=== PATIENT | male | born 1945 | race Caucasian/White ===

== ENCOUNTER 2018-09-29 12:30 | Inpatient (IN) ==
--- NOTE | 2018-09-18 13:13 | PAT Medication Instructions ---
Medication Instructions Date of Service September 18, 2018 Home Medications bmlorvr-ojevhzsvhtccd-cboqxars 2 tab PO HS PRN ibuprofen 800 mg PO TID PRN metoprolol tartrate 25 mg PO BID multivitamin 1 tab PO DAILY Ocuvite xa-dj-FI-vit X-ndine-ymac-zeax 2 tab PO DAILY pravastatin 20 mg PO HS saw palmetto 160 mg PO BID ASK your surgeon for instructions uiqsdqv-cpbteutlrcutb-ipppesuf 2 tab PO HS PRN ibuprofen 800 mg PO TID PRN STOP taking 2 weeks before surgery (or as soon as possible if surgery is within 2 weeks) Ocuvite jd-vi-OX-vit F-brjco-cots-zeax 2 tab PO DAILY saw palmetto 160 mg PO BID DO NOT take the morning of surgery multivitamin 1 tab PO DAILY Take morning of surgery With a small sip of water, OTHERWISE NOTHING TO EAT OR DRINK AFTER MIDNIGHT: metoprolol tartrate 25 mg PO BID Take evening before surgery metoprolol tartrate 25 mg PO BID pravastatin 20 mg PO HS Other Notes If you have any questions please call us at [phone] or [phone] or [phone] or [phone]
--- NOTE | 2018-09-19 11:51 | Anesthesiology Consultation ---
Date of Service September 19, 2018 Assessment & Plan (1) Encounter for pre-operative examination: -No previous anesthesia records available Chart Review Chart Review: Acceptable Risk for Surgery and Patient seen in Pre Admission Testing Consults Requested none Teaching & Discussion Pre-Anesthesia Teaching/Discussion Notes: Instructed NPO after midnight before surgery, except medications with 15 cc of water. Medication instructions provided according to the PAT guidelines. History Surgery Operation Date: 09/29/18 14:15 Proposed Procedures p L2-L5 Decompression and Fusion, Spinal Cord Monitoring - German Moss DO Height/Weight Height: 6 ft 3 in Weight: 127.7 kg Allergies Allergy/AdvReac Type Severity Reaction Status Date / Time bacitracin Allergy Mild Swelling Verified 09/19/18 12:00 at applicatin site naproxen AdvReac Mild Elevated BP Verified 09/19/18 12:00 Medications Home Medications Medication Instructions Recorded Confirmed Last Taken hzaqqpa-zxenclckpymek-qloqqzap 2 tab PO HS PRN 09/18/18 09/18/18 Unknown [Excedrin Extra Strength] ibuprofen 800 mg PO TID PRN 09/18/18 09/18/18 Unknown metoprolol tartrate 25 mg PO BID 09/18/18 09/18/18 Unknown multivitamin 1 tab PO DAILY 09/18/18 09/18/18 Unknown ac-hk-IH-vit U-csiaq-wjck-zeax 2 tab PO DAILY 09/18/18 09/18/18 Unknown [Ocuvite Eye Plus Multi] pravastatin 20 mg PO HS 09/18/18 09/18/18 Unknown saw palmetto 160 mg PO BID 09/18/18 09/18/18 Unknown Past Medical History Medical History BPH (benign prostatic hyperplasia) Blood clotting disorder NO KNOWN DIAGNOSIS. FOLLOWS WITH DR. 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 Able to climb FOS slowly, but gets tired. Denies CP or SOB. ) Past Family History Family History Mother FHx: breast cancer Sister FHx: breast cancer Past Surgical History Surgical History History of arthroscopy LEFT KNEE History of colonoscopy History of open reduction and internal fixation (ORIF) procedure LEFT ARM ( A CHILD) History of tonsillectomy History of total hip arthroplasty LEFT Past Anesthesia History No Hx of Anesthesia Complications and No Family Hx of Anesthesia Complications History of PONV No Hx of PONV and Hx of Motion Sickness (Once on a ferry ride. Had vertigo once x 24 hours. ) Social History Smoking Status: Never smoker Do You Dip or Chew Tobacco: No Hx Alcohol Use: Yes Alcohol type: wine alcohol intake frequency: holidays/special occasions only Hx Substance Use: No substance use type: does not use Review of Systems Patient denies chest pain, shortness of breath, dyspnea on exertion, reflux, cough, wheezing, palpitations. +Joint Pain (Back and radiates down into upper legs, knees) Physical Exam Vital Signs BP: 163/82 P: 16 R: 16 T: 98.2 SPO2: 96% on RA Constitutional + obese ENMT Thyromental Distance: < 3.5 Finger Breadths (3) Mallampati Class: II Neck normal visual inspection and trachea midline; neck extension not limited Respiratory normal respiratory effort Auscultation: lungs clear to auscultation bilaterally Cardiovascular Rate/Rhythm: regular rate and regular rhythm Heart Sounds: no murmur Vessels: no carotid bruit Neurologic moves all extremities Psychiatric Orientation: alert and oriented x 3 Testing Electrocardiogram Date: 09/19/18 Findings: + SB @ (59) Nonspecific T wave abnormality. Chest X-Ray Date: 09/19/18 Findings: + NAD FINDINGS: The bones soft tissues and hemidiaphragms are normal. The card iomediastinal silhouette is normal. The lungs are clear. The pulmonary vasculature is normal. IMPRESSION: Negative chest. Laboratory Results 09/19/18 12:30 09/19/18 12:30 Blood Type B Positive 09/19/18 12:30 Antibody Screen NEGATIVE 09/19/18 12:30 PT 10.2 Seconds (9.0-12.0) 09/19/18 12:30 INR 1.0 (0.9-1.1) 09/19/18 12:30 APTT 24.7 Seconds (21.0-31.0) 09/19/18 12:30 Urine Color Yellow 09/19/18 12:30 Urine Appearance Clear (Clear) 09/19/18 12:30 Urine pH 5.5 (4.5-7.5) 09/19/18 12:30 Ur Specific [place] 1.022 (1.000-1.030) 09/19/18 12:30 Urine Protein Negative (Negative) 09/19/18 12:30 Urine Glucose (UA) Negative (Negative) 09/19/18 12:30 Urine Ketones Negative (Negative) 09/19/18 12:30 Urine Nitrite Negative (Negative) 09/19/18 12:30 Ur Leukocyte Esterase Negative (Negative) 09/19/18 12:30
--- NOTE | 2018-09-19 13:02 | XRay Report ---
XR chest Pre-admission PA/Lat CLINICAL HISTORY: pat preoperative evaluation COMPARISON STUDY: No previous studies for comparison. FINDINGS: The bones soft tissues and hemidiaphragms are normal. The cardiomediastinal silhouette is n ormal. The lungs are clear. The pulmonary vasculature is normal. IMPRESSION: Negative chest. The above report was generated using voice recognition software. It may contain grammatical, syntax or spelling errors. Electronically signed by: Afshin Mckenzie M.D. 09/19/2018 1:01 PM
[2018-09-19 13:46] LABS: Basophils # (auto) 0.03 K/uL (0-0.2); Basophils % (auto) 0.7 %; Eosinophils # (auto) 0.08 K/uL (0-0.5); Eosinophils % (auto) 1.8 %; Hematocrit (blood only) 43.3 % (42-52); Hemoglobin 15.5 g/dL (14.0-18.0); Immature Granulocytes # (auto) 0.01 K/uL (0.00-0.02); Immature Granulocytes % (auto) 0.2 %; Lymphocytes # (auto) 1.14 K/uL (1.2-3.4); Lymphocytes % (auto) 25.6 %; Mean Corpuscular Hgb Conc 35.8 g/dL (32-36); Mean Corpuscular Volume 89.3 fL (80-100); Mean Platelet Volume 9.7 fL (7.4-10.4); Monocytes # (auto) 0.37 K/uL (0.11-0.59); Monocytes % (auto) 8.3 %; Neutrophils # (auto) 2.82 K/uL (1.4-6.5); Neutrophils % (auto) 63.4 %; Platelet Count 208 K/uL (130-400); RDW Coefficient of Variation 13.1 % (11.5-14.5); RDW Standard Deviation 42.3 fL (36.4-46.3); Red Blood Count 4.85 M/uL (4.7-6.1); White Blood Count 4.45 K/uL (4.8-10.8)
[2018-09-19 14:09] LABS: Partial Thromboplastin Ratio 0.9; Partial Thromboplastin Time 24.7 Seconds (21.0-31.0); Prothrombin Time 10.2 Seconds (9.0-12.0)
[2018-09-19 14:28] LABS: Appearance Urine Clear (Clear); Bilirubin Urine Negative (Negative); Color Urine Yellow; Glucose Urine UA Negative (Negative); Ketones Urine Negative (Negative); Leukocyte Esterase Urine Negative (Negative); Nitrite Urine Negative (Negative); Protein Urine Negative (Negative); Specific Gravity Urine 1.022 (1.000-1.030); Urobilinogen Urine Negative (Negative); pH Urine 5.5 (4.5-7.5)
[2018-09-19 14:51] LABS: BUN Creatinine Ratio 18.9 (10-20); Calcium 9.7 mg/dl (8.5-10.1); Creatinine Clr Calc Pharmacy 135.6 ml/min; Est GFR (African American) 108.9
[~2018-09-29 12:30] MED LIST: ACETAMINOPHEN 500 MG TAB PO SCH; CEFAZOLIN 3000MG 65 ML IV SCH; CeleBREX 200 MG CAP PO SCH; GABAPENTIN 300 MG PO SCH; LR 15ML/HR IV SCH
--- NOTE | 2018-09-29 14:07 | History & Physical Bridge Note ---
Date of Service September 29, 2018 History & Physical Bridge Note I have examined the patient, reviewed the History & Physical and in the interval since the performance of the History & Physical I have noted the following changes of clinical significance: no changes noted
--- NOTE | 2018-09-29 14:09 | History & Physical Report ---
Date of Service September 29, 2018 Assessment & Plan (1) Spinal stenosis, lumbar region with neurogenic claudication: Decompression and fusion L2-L5 Present on Admission?: Yes History of Present Illness Chief Complaint: Back and leg pain Primary Care Provider: Jace Harrington 72-year-old male with chronic persistent back in bilateral leg pain and after failing extensive course of nonoperative care is here for surgical intervention. Allergies Allergy/AdvReac Type Severity Reaction Status Date / Time bacitracin Allergy Mild Swelling Verified 09/29/18 13:00 at applicatin site naproxen AdvReac Mild Elevated BP Verified 09/29/18 13:00 Home Medications Home Medications Medication Instructions Recorded Confirmed Type yajbggt-psyejivxcixst-gkwhuyul 2 tab PO HS PRN 09/18/18 09/29/18 History [Excedrin Extra Strength] ibuprofen 800 mg PO TID PRN 09/18/18 09/29/18 History metoprolol tartrate 25 mg PO BID 09/18/18 09/29/18 History multivitamin 1 tab PO DAILY 09/18/18 09/29/18 History dp-va-HO-vit C-ysrgh-nuuv-zeax 2 tab PO DAILY 09/18/18 09/29/18 History [Ocuvite Eye Plus Multi] pravastatin 20 mg PO HS 09/18/18 09/29/18 History saw palmetto 160 mg PO BID 09/18/18 09/29/18 History Past Med/Surg History Family History Mother FHx: breast cancer Sister FHx: breast cancer Social History Preferred Language: Yi Communication Ability: Effective Guide Travel Required: No Beliefs That Will Affect Care: None Current Living Situation: Spouse Other Information That Helps Us Care for You: No Feels Safe at Home: Yes Safety Concerns: Feels Safe At This Time Smoking Status: Never smoker Do You Dip or Chew Tobacco: No Second Hand Exposure: No Tobacco Cessation Education Requested by Patient: No Hx Alcohol Use: Yes Alcohol type: wine Hx Substance Use: No Physical Exam Vital Signs (Past 24 Hours): Last Vital Signs Temp 37.2 C 09/29/18 13:18 Pulse 97 H 09/29/18 13:18 Resp 20 09/29/18 13:18 BP 166/101 H 09/29/18 13:18 Pulse Ox 97 09/29/18 13:18 Physical Exam: Patient is alert and oriented neurologically intact
[2018-09-29] MEDS ORDERED: fentaNYL citrate 100 MCG/2 ML VIAL ONE (14:21)
[2018-09-29] MEDS ORDERED: BUPIVACAINE/EPINEPHRINE 0.5% MPF 1:200,000 30 ML VIAL ONE (14:21)
[2018-09-29] MEDS ORDERED: MIDAZOLAM HCL 1 MG/ML 2ML VIAL ONE (14:21)
[2018-09-29] MEDS ORDERED: LABETALOL HCL IV 5 MG/ML 20ML IV PRN (15:05)
[2018-09-29] MEDS ORDERED: ATROPINE SULFATE 0.1 MG/ML 10ML SYR IV PRN (15:05)
[2018-09-29] MEDS ORDERED: NALOXONE HCL 0.4 MG/1 ML VIAL/CARP IV PRN (15:05)
[2018-09-29] MEDS ORDERED: FLUMAZENIL 0.1 MG/1 ML 10 ML VIAL IV PRN (15:05)
[2018-09-29] MEDS ORDERED: ePHEDrine sulfate 50 MG/ML AMP IV PRN (15:05)
[2018-09-29] MEDS ORDERED: HYDROmorphone INJ 1 MG/ML SYRINGE IV PRN (15:05)
[2018-09-29] MEDS ORDERED: ONDANSETRON INJ 2 MG/ML 2 ML VIAL IV PRN ×2 (15:05→19:13)
[2018-09-29] MEDS ORDERED: PROMETHAZINE HCL 12.5 MG in SODIUM CHLORIDE 0.9% 50 ML IV PRN ×2 (15:05→19:13)
[2018-09-29] MEDS ORDERED: HYDROmorphone INJ 2 MG/ML SYR/VIAL ONE (15:14)
[2018-09-29] MEDS ORDERED: DEXAMETHASONE SOD INJ 4 MG/ML VIAL ONE (17:13)
[2018-09-29] MEDS ORDERED: ePHEDrine sulfate 50 MG/ML AMP ONE (17:13)
[2018-09-29] MEDS ORDERED: LIDOCAINE HCL 2% 2 ML VIAL/AMP(20MG/ML) INFIL ONE (17:13)
[2018-09-29] MEDS ORDERED: ONDANSETRON INJ 2 MG/ML 2 ML VIAL ONE (17:13)
[2018-09-29] MEDS ORDERED: ROCURONIUM BROMIDE 10 MG/ML 5 ML VIAL ONE (17:13)
[2018-09-29] MEDS ORDERED: PROPOFOL IV EMULSION 10 MG/ML 20 ML VIAL IV ONE (17:13)
[2018-09-29] MEDS ORDERED: NEOSTIGMINE METHYLSULFATE 1 MG/ML 10ML VIAL ONE (17:46)
[2018-09-29] MEDS ORDERED: GLYCOPYRROLATE 0.2 MG/ML VIAL ONE (17:46)
[2018-09-29] MEDS ORDERED: FLOSEAL HEMOSTATIC MATRIX 10ML TOP ONE (17:47)
--- NOTE | 2018-09-29 17:52 | Operative Report ---
Post Operative Report Pre & Post Diagnosis Operation Date: 09/29/18 14:05 Pre-Op Diagnosis: Lumbar spinal stenosis with neurogenic claudication Obesity Post-Op Diagnosis: Same Procedure Operation Date: 09/29/18 14:05 Actual Procedures #1 lumbar decompression bilateral medial facetectomies foraminotomies L2-3 L3-4 L4-5. #2 posterior spinal fusion L2-3 L3-4 L4-5. #3 placement posterior segmental instrumentation using globus rods and screws L2-3 L3-4 L4-5. #4 interbody fusion L3-4 L4-5 per #5 placement of peek cage 14 x 26 mm of L3-4 and 15 x 26 mm at L4-5. #6 placement of local autograft in the posterior lateral gutters. #7 patient infuse collagen sponge combined with master graft in the posterior gutters and ostial amp and interbody space. Surgeon German Moss, Forensic Artist Angy Lopez Estimated Blood Loss 1,000 Findings See Below Patient is 6 foot 3 inches tall 128 kg with a BMI of 35. Patient's body weight in excess of blood loss added at least an increase of 50% operative time. Specimens None Indications This is a 72-year-old male that presents with chronic back and bilateral leg pain. He is steady decline over the past several years and is here for surgical intervention. Description of Procedure Patient was met with preoperatively identified and informed consent obtained. Patient was then taken to the operative suite underwent ablation placed in a prone position on the [place] table on top of the Braden frame. All bony prominences well-padded eyes inspected to ensure no external pressure placed upon the peer at this point the lumbar spine was prepped and draped in normal sterile fashion. Sharp dissection with the assistance of Bovie cautery was performed down to and exposing the lamina and transverse processes of L2 L3-L4-L5 bilaterally. From a caudal cephalad fashion complete laminectomy of L4 L3 and L2 was performed including bilateral medial facetectomies and foraminotomies addressing severe spinal stenosis as well as excision of facet cyst at L3-4 on the left. After this is complete pedicle screws were placed in L2-L3 L4-5 bilaterally with assistance of fluoroscopy the appropriate size jesus placed. By way of a transforaminal approach on the right complete discectomy of L4-5 was performed in plate graded to subcortical bleeding bone and a 15 x 26 mm cage filled with ostium bone graft tapped in position. Then proceeded to L3-[address] of a transforaminal approach on the right complete discectomy performed in place coated to subcortical bleeding bone and a 14 x 26 mm peek cage filled with osteo-amp bone graft tapped in position. The rods were then locked in final position bilaterally. Transverse processes of L2 L3-L4-L5 bur to subcortical bleeding bone. Infuse collagen sponge mass graft local autograft placed in the posterior lateral gutters. 15 round SALVADOR drain inserted. Incision was then closed with 1 Vicryl in the fascia 2-0 Vicryl subcutaneous layer and 4- 0 Monocryl for final skin closure. Steri-Strip sterile dressings placed. Patient will continue to PACU stable condition. Please note Angy Lopez present throughout the entire procedure involved in patient positioning complex portions of the surgery and final skin closure. Lastly spinal cord monitoring was utilized throughout the procedure and no changes noted. I attest to the content of the Intraoperative Record and any orders documented therein. Any exceptions are noted below.
--- NOTE | 2018-09-29 18:05 | Fluoroscopy Report ---
LUMBAR SPINE, INTRAOPERATIVE FLUOROSCOPY HISTORY: L2-L5 decompression and fusion. FLUOROSCOPY TIME: 28 seconds. FINDINGS: Intraoperative fluoroscopy was provided for the lumbar spine. 3 fluoroscopic spot images we re obtained. Posterior decompression and fusion from L2 through L5 with pedicle screws and rods. The hardware appears intact. IMPRESSION: Fluoroscopy provided for a L2-L5 posterior decompression and fusion. Electronically signed by: Sandip Mazariegos M.D. 09/29/2018 6:04 PM
[2018-09-29 18:42] LABS: Hematocrit (blood only) 40.4 % (42-52); Hemoglobin 13.8 g/dL (14.0-18.0)
--- NOTE | 2018-09-29 18:57 | Anesthesiology Progress Note ---
Date of Service September 29, 2018 Anesthesia Post Procedure Vital Signs Vital Signs: Temp Pulse Pulse Resp BP Pulse Ox 09/29/18 18:50 74 18 149/70 H 98 09/29/18 18:40 36.5 C 65 18 154/76 H 95 09/29/18 18:30 71 18 158/72 H 95 09/29/18 18:20 79 16 167/80 H 98 09/29/18 18:10 68 16 173/73 H 100 09/29/18 18:04 36.4 C L 80 16 171/70 H 99 09/29/18 13:18 37.2 C 97 H 20 166/101 H 97 Transfer of Care Handoff Completed per policy Notes Mental Status: alert / awake / arousable Patient Amnestic to Procedure: Yes Nausea / Vomiting: adequately controlled Pain: adequately controlled Airway Patency, RR, SpO2: stable & adequate BP & HR: stable & adequate Hydration State: stable & adequate Anesthetic Complications: no major complications apparent and Pt Satisfied with anesthetic care Notes: The patient is awake and comfortable. Postop hgb was 13.8.
[2018-09-29] MEDS ORDERED: HYDROmorphone INJ 0.5 MG/0.5 ML SYR IV PRN (19:13)
[2018-09-29] MEDS ORDERED: METOCLOPRAMIDE HCL INJ 5 MG/ML 2 ML VIAL IV PRN (19:13)
[2018-09-29] MEDS ORDERED: BISACODYL 10 MG SUPP PR PRN (19:13)
[2018-09-29] MEDS ORDERED: MAGNESIUM HYDROXIDE SUSP 30 ML UDC PO PRN (19:13)
[2018-09-29] MEDS ORDERED: ONDANSETRON 4 MG TAB PO PRN (19:13)
[2018-09-29] MEDS ORDERED: DO NOT ADMINISTER PNEUMOCOCCAL VACCINE PRN (19:13)
[2018-09-29] MEDS ORDERED: LORazepam 0.5 MG/1 ML VIAL IV PRN (19:13)
[2018-09-29] MEDS ORDERED: ACETAMINOPHEN 500 MG TAB PO PRN (19:13)
[2018-09-29] MEDS ORDERED: ALUMINUM/MAGNESIUM SUSP 30 ML UDC PO PRN (19:13)
[2018-09-29] MEDS ORDERED: DO NOT ADMINISTER FLU VACCINE PRN (19:13)
[2018-09-29] MEDS ORDERED: LORazepam 0.5 MG TAB PO PRN (19:13)
[2018-09-29] MEDS ORDERED: TRAMADOL HCL 50 MG TABLET PO PRN (19:13)
[2018-09-29] MEDS ORDERED: SOD PHOSPHATE/SOD BIPHOSPHATE ENEMA 132 ML BTL PR PRN (19:13)
[2018-09-29] MEDS ORDERED: ACETAMINOPHEN 1,000 MG/100 ML VIAL IV PRN (19:13)
[2018-09-29] MEDS ORDERED: FAMOTIDINE 20 MG TAB PO PRN (19:13)
[2018-09-29] MEDS: LACTATED RINGER'S 1,000 ML IV SCH (20:18)
[2018-09-29] MEDS: METOPROLOL TARTRATE 50 MG TAB PO SCH (21:32)
[2018-09-29] MEDS: PRAVASTATIN SOD 20 MG TAB PO SCH (21:33)
[2018-09-29] MEDS: DOCUSATE SODIUM/SENNA 50/8.6MG TAB PO SCH (21:33)
--- NOTE | 2018-09-29 22:20 | Hospitalist Consultation ---
Date of Consultation September 29, 2018 Assessment & Plan (1) Spinal stenosis, lumbar region with neurogenic claudication: - POD#0 L2-L5 decompression and fusion by Dr. Moss - activity and wound care orders as per ortho - pain control with bowel regimen - PT/OT - monitor H/H for acute blood loss anemia and transfuse blood products PRN -EBL 1000 cc (2) Hypertension: -BP controlled, continue metoprolol (3) Hyperlipidemia: -Continue statin (4) DVT prophylaxis: -Teds/SCDs as per spine orthopedics Thank you for this consultation. We will follow the patient with you during their hospital stay. You can reach a member of the [facility] Hospitalist Team 03/12 via pager @ [phone]. Supervising Physician Co-Signing Physician Notes Care coordinated with Ania Cartwright. Agree with above note. Patient seen and examined. Please refer to her notes for full details. Vital signs reviewed. Physical exam: General exam: Alert and oriented. Not in acute distress. CVS: S1 and S2 heard, regular rate and rhythm, no murmurs. RS: Clear to auscultation, no wheezing or crackles. ABD: Soft, bowel sounds present, nontender, no distention. Musculoskeletal s/p back surgery. Dressing and drain intact COMPUTER TECHNOLOGY TRAINER: Nonfocal. EXT: No edema, no erythema.Moves extremities Labs: Reviewed. Assessment and plan: s/p Back surgery has pain at surgery site Management as per ortho Htn Home meds will monitor Other diagnosis and plan of care as per as per Ania Cartwright. Joe espitia MD. History of Present Illness Reason for Consultation: Postop medical management Requesting Physician: Dr. Moss Attending Physician: Dr. Malloy History of Present Illness 72-year-old male who is status post L2-L5 decompression and fusion today by Dr. Moss. Postoperatively the patient is doing well. He reports his pain is well controlled. He reports some dry mouth. He reports he had some mild nausea earlier however that has since resolved. No vomiting or abdominal pain. He denies chest pain or shortness of breath. No lightheadedness or dizziness. Denies numbness and tingling to the lower extremities. [place] catheter is in place draining clear yellow urine. Allergies Allergy/AdvReac Type Severity Reaction Status Date / Time bacitracin Allergy Mild Swelling Verified 09/29/18 13:00 at applicatin site naproxen AdvReac Mild Elevated BP Verified 09/29/18 13:00 Home Medications Home Medications Medication Instructions Recorded Confirmed Type sbtmvup-xngizrzemltrt-cpwgcvhc 2 tab PO HS PRN 09/18/18 09/29/18 History [Excedrin Extra Strength] ibuprofen 800 mg PO TID PRN 09/18/18 09/29/18 History metoprolol tartrate 25 mg PO BID 09/18/18 09/29/18 History multivitamin 1 tab PO DAILY 09/18/18 09/29/18 History vq-vj-ZA-vit H-himau-cvqn-zeax 2 tab PO DAILY 09/18/18 09/29/18 History [Ocuvite Eye Plus Multi] pravastatin 20 mg PO HS 09/18/18 09/29/18 History saw palmetto 160 mg PO BID 09/18/18 09/29/18 History oxycodone 5 mg PO Q4H PRN #30 tab 09/30/18 Rx tramadol 50 mg PO Q4H PRN #30 tab 09/30/18 Rx Patient History Medical History Hyperlipidemia (Chronic) Hypertension (Chronic) BPH (benign prostatic hyperplasia) (Chronic) Deep vein thrombosis (Chronic) X2 IN BILATERAL LEGS FOLLOWING LEFT KNEE ARTHROSCOPY Macular degeneration (Chronic) LEFT EYE Blood clotting disorder (Chronic) NO KNOWN DIAGNOSIS. FOLLOWS WITH DR. ANGUIANO, DR SINGH & DR SIFUENTES, FRAME COVERER ([place]) Chronic back pain (Chronic) Osteoarthritis (Chronic) Degenerative disc disease (Chronic) Surgical History History of colonoscopy (Chronic) History of arthroscopy (Chronic) LEFT KNEE History of total hip arthroplasty (Chronic) LEFT History of tonsillectomy (Chronic) History of open reduction and internal fixation (ORIF) procedure (Chronic) LEFT ARM ( A CHILD) Family History Mother FHx: breast cancer Sister FHx: breast cancer Social History Preferred Language: Brazilian Communication Ability: Effective Electronic Funds Transfer Coordinator Required: No Beliefs That Will Affect Care: None Current Living Situation: Spouse Other Information That Helps Us Care for You: No Feels Safe at Home: Yes Safety Concerns: Feels Safe At This Time Smoking Status: Never smoker Do You Dip or Chew Tobacco: No Second Hand Exposure: No Tobacco Cessation Education Requested by Patient: No Hx Alcohol Use: Yes Alcohol type: wine Hx Substance Use: No Review of Systems Review of Systems: ROS per HPI, all other systems reviewed and negative Physical Exam Constitutional: WD/WN, vitals as above Eyes: PERRL, conjunctivae normal, anicteric sclerae ENMT: external ear and nose normal, oropharynx normal Respiratory: normal respiratory effort, lungs clear to auscultation Cardiovascular: Rate/Rhythm: regular rate and regular rhythm Vessels: normal peripheral pulses Extremities: no edema Gastrointestinal (Abdomen): normal bowel sounds, soft, nontender, no hepatosplenomegaly Musculoskeletal: no cyanosis or clubbing, extremities motor strength 5/5 S/P back surgery, drain in place draining bloody drainage, pedal pushes and pulls strong bilaterally Skin: no rashes, warm and dry Neurologic: PERRL, EOMI, accommodation nl, no face palsy, no dysarthria Psychiatric: A+Ox3, euthymic affect Genitourinary: Red[place] in place draining clear yellow urine Results & Data Vital Signs (Past 12 Hours) Vital Signs Temp Pulse Pulse Resp BP Pulse Ox 09/29/18 21:00 36.3 C L 77 16 136/76 99 09/29/18 20:00 35.9 C L 75 16 150/78 H 99 09/29/18 19:30 36.2 C L 70 16 150/76 H 97 09/29/18 19:00 36.5 C 84 18 157/73 H 97 09/29/18 18:50 74 18 149/70 H 98 09/29/18 18:40 36.5 C 65 18 154/76 H 95 09/29/18 18:30 71 18 158/72 H 95 09/29/18 18:20 79 16 167/80 H 98 09/29/18 18:10 68 16 173/73 H 100 09/29/18 18:04 36.4 C L 80 16 171/70 H 99 09/29/18 13:18 37.2 C 97 H 20 166/101 H 97
[2018-09-29] MEDS: CEFAZOLIN 2000MG 2,000 MG/15 ML SYR IV SCH (23:51)
[2018-09-30] MEDS: LACTATED RINGER'S 1,000 ML IV SCH (02:32)
[2018-09-30] MEDS: CEFAZOLIN 2000MG 2,000 MG/15 ML SYR IV SCH (06:00)
[2018-09-30] MEDS: POLYETHYLENE (MIRALAX) 17 GM PACK PO SCH ×4 (06:00→18:11)
[2018-09-30 06:23] LABS: Hematocrit (blood only) 34.6 % (42-52); Hemoglobin 11.9 g/dL (14.0-18.0); Immature Granulocytes # (auto) 0.01 K/uL (0.00-0.02); Immature Granulocytes % (auto) 0.1 %; Lymphocytes # (auto) 0.93 K/uL (1.2-3.4); Lymphocytes % (auto) 10.8 %; Mean Corpuscular Hgb Conc 34.4 g/dL (32-36); Mean Corpuscular Volume 89.4 fL (80-100); Mean Platelet Volume 9.6 fL (7.4-10.4); Monocytes # (auto) 0.58 K/uL (0.11-0.59); Monocytes % (auto) 6.7 %; Neutrophils # (auto) 7.13 K/uL (1.4-6.5); Neutrophils % (auto) 82.4 %; Platelet Count 180 K/uL (130-400); RDW Standard Deviation 42.1 fL (36.4-46.3); Red Blood Count 3.87 M/uL (4.7-6.1); White Blood Count 8.65 K/uL (4.8-10.8)
[2018-09-30 06:56] LABS: BUN Creatinine Ratio 24.9 (10-20); Calcium 8.4 mg/dl (8.5-10.1); Creatinine Clr Calc Pharmacy 145.5 ml/min; Est GFR (African American) 112.1; Est GFR (Non-African American) 96.8; Potassium 4.3 mmol/L (3.5-5.1)
[2018-09-30] MEDS: MULTIVITAMIN TAB PO SCH (07:36)
[2018-09-30] MEDS: OXYCODONE HCL IR 5 MG TAB (IMMEDIATE RELEASE) PO PRN (07:36)
[2018-09-30] MEDS: METOPROLOL TARTRATE 50 MG TAB PO SCH ×2 (07:36→20:08)
--- NOTE | 2018-09-30 08:37 | Anesthesiology Progress Note ---
Date of Service September 30, 2018 Anesthesia Post Procedure Vital Signs Vital Signs: Temp Pulse Pulse Pulse Resp BP BP 09/30/18 07:16 36.8 C 79 18 136/72 09/30/18 03:13 36.8 C 89 14 133/68 09/29/18 23:48 36.7 C 95 H 14 158/75 H 09/29/18 21:00 36.3 C L 77 16 136/76 09/29/18 20:00 35.9 C L 75 16 150/78 H 09/29/18 19:30 36.2 C L 70 16 150/76 H 09/29/18 19:00 36.5 C 84 18 157/73 H 09/29/18 18:50 74 18 149/70 H 09/29/18 18:40 36.5 C 65 18 154/76 H 09/29/18 18:30 71 18 158/72 H 09/29/18 18:20 79 16 167/80 H 09/29/18 18:10 68 16 173/73 H 09/29/18 18:04 36.4 C L 80 16 171/70 H 09/29/18 13:18 37.2 C 97 H 20 166/101 H Pulse Ox 09/30/18 07:16 93 09/30/18 03:13 93 09/29/18 23:48 97 09/29/18 21:00 99 09/29/18 20:00 99 09/29/18 19:30 97 09/29/18 19:00 97 09/29/18 18:50 98 09/29/18 18:40 95 09/29/18 18:30 95 09/29/18 18:20 98 09/29/18 18:10 100 09/29/18 18:04 99 09/29/18 13:18 97 Pain Intensity Right Leg: Pain Intensity: 6 Transfer of Care Handoff Completed per policy Notes Mental Status: alert / awake / arousable Patient Amnestic to Procedure: Yes Nausea / Vomiting: improving with treatment (Nausea, no vomiting) Pain: adequately controlled Airway Patency, RR, SpO2: stable & adequate BP & HR: stable & adequate Hydration State: stable & adequate Anesthetic Complications: no major complications apparent
--- NOTE | 2018-09-30 08:59 | Hospitalist Progress Note ---
Date of Service September 30, 2018 Assessment & Plan (1) Spinal stenosis, lumbar region with neurogenic claudication: - POD#1 L2-L5 decompression and fusion by Dr. Moss - activity and wound care orders as per ortho - pain control with bowel regimen - PT/OT - monitor H/H for acute blood loss anemia and transfuse blood products PRN -EBL 1000 cc (2) Acute blood loss anemia: H/H stable 11.9/34.6 monitor cbc EBL 1000ml; SALVADOR drain 695ml (3) Hypertension: BP controlled, continue metoprolol (4) Hyperlipidemia: Continue statin (5) DVT prophylaxis: hx of b/l DVT post knee surgery in past pt states Dr. Moss told him he could take ASA 325mg post operatively. Will clarify with ortho Teds/SCDs as per spine orthopedics Patient was seen and examined in collaboration with Dr. Delgado, please see addendum Thank you for this consultation. We will follow the patient with you during their hospital stay. You can reach a member of the [facility] 03/12 via pager @ [phone]. Supervising Physician Co-Signing Physician Notes I have seen and examined the patient and have discussed the case with the provider above. I agree with the assessment and plan as stated. Danny, DO Subjective Patient was seen and examined in room 314. S/P Lumbar surgery by Dr. Moss POD #1. Patient states he is, "not doing well," this morning. Complaining of 6/10 incisional back pain with radiation to R thigh. Attempted to sit up and stand at side of bed and inability to due so due to significant pain. Unable to eat because unable to sit up. +Nausea with pain. He is tolerating liquids. He denies f/c/s, chest pain, sob, dizziness, abdominal pain. +hendricks cath in place. Pt concerned given hx of DVT in past. States Dr. Moss said he could take 325mg asa post op but hasn't received yet. Review of Systems Review of Systems: As noted per HPI, 10 systems reviewed and negative unless noted above. Physical Exam Physical Exam: Gen: WD/WN, M, lying in bed, +pain, A&O x3 HEENT: Normocephalic, atraumatic, conjunctivae moist, sclerae anicteric, mucous membranes moist. Lung: Clear to Auscultation bilaterally, no wheezes/rales/rhonchi Heart: Regular rate, regular rhythm, no murmurs, rubs, or gallops Abdomen: Soft, NT, ND +BS x 4 Extremities: No edema Skin: Warm, no rash, negative turgor. Lumbar incision CDI, SALVADOR drain with serosanginous drainage Results & Data Vital Signs (Past 12 Hours) Vital Signs Temp Pulse Pulse Resp BP BP Pulse Ox 09/30/18 07:16 36.8 C 79 18 136/72 93 09/30/18 03:13 36.8 C 89 14 133/68 93 09/29/18 23:48 36.7 C 95 H 14 158/75 H 97 09/29/18 21:00 36.3 C L 77 16 136/76 99 Laboratory Results Short CBC 09/29/18 09/30/18 Range/Units 18:34 06:01 WBC 8.65 (4.8-10.8) K/uL Hgb 13.8 L 11.9 L (14.0-18.0) g/dL Hct 40.4 L 34.6 L (42-52) % Plt Count 180 (130-400) K/uL BMP 09/30/18 06:01 Sodium 139 Potassium 4.3 Chloride 105 Carbon Dioxide 28 BUN 17 Creatinine 0.68 Glucose 133 H Calcium 8.4 L Medications Administered Lorazepam (Ativan) 0.5 mg PO Q8H PRN PRN Reason: Sedation/Anxiety Stop: 10/29/18 19:12 Last Admin: 09/30/18 08:52 Dose: 0.5 mg Documented by: [id number] Metoprolol Tartrate (Lopressor) 25 mg PO BID [facility] Stop: 10/29/18 20:59 Last Admin: 09/30/18 07:36 Dose: 25 mg Documented by: [id number] Admin: 09/29/18 21:32 Dose: 25 mg Documented by: [id number] Miscellaneous (Order Awaiting Action) 1 ea N/A QS [facility] Stop: 10/30/18 00:00 Last Admin: 09/30/18 07:33 Dose: Not Given Documented by: [id number] Admin: 09/29/18 23:51 Dose: Not Given Documented by: [id number] Multivitamins (Multivitamin Tab) 1 tab PO DAILY [facility] Stop: 10/30/18 08:59 Last Admin: 09/30/18 07:36 Dose: 1 tab Documented by: [id number] Ondansetron HCl (Zofran) 4 mg IV Q6H PRN PRN Reason: Nausea &/or Vomiting Stop: 10/29/18 19:12 Last Admin: 09/30/18 06:11 Dose: 4 mg Documented by: [id number] Oxycodone HCl (Roxicodone Immediate Rel) 5 - 10 mg PO Q4H PRN PRN Reason: Moderate-Severe Pain Stop: 10/13/18 19:12 Last Admin: 09/30/18 07:36 Dose: 10 mg Documented by: [id number] Polyethylene Glycol (Miralax Powder Packet) 17 gm PO Q6 [facility] Stop: 10/30/18 05:59 Last Admin: 09/30/18 06:00 Dose: 17 gm Documented by: [id number] Pravastatin Sodium (Pravachol) 20 mg PO [facility] Stop: 10/29/18 20:59 Last Admin: 09/29/18 21:33 Dose: 20 mg Documented by: [id number] Senna/Docusate Sodium (Senokot S) 2 tab PO [facility] Stop: 10/29/18 20:59 Last Admin: 09/29/18 21:33 Dose: 2 tab Documented by: [id number] Tramadol HCl (Ultram) 50 - 100 mg PO Q4H PRN PRN Reason: Moderate-Severe pain Stop: 10/29/18 19:12 Last Admin: 09/30/18 02:32 Dose: 100 mg Documented by: [id number] Discontinued Medications Acetaminophen (Tylenol) 1,000 mg PO PREOP [facility] Stop: 09/29/18 18:00 Last Admin: 09/29/18 13:31 Dose: 1,000 mg Documented by: [id number] Bupivacaine HCl/Epinephrine Bitart (Sensorcaine/Epinephrine 0.5% Mpf 1:200,000) Confirm Administered Dose 30 ml .ROUTE .STK-MED ONE Stop: 09/29/18 14:22 Last Admin: 09/29/18 15:12 Dose: 30 ml Documented by: [id number] Celecoxib (Celebrex) 200 mg PO PREOP [facility] Stop: 09/29/18 18:00 Last Admin: 09/29/18 19:20 Dose: Not Given Documented by: [id number] Gabapentin (Neurontin) 300 mg PO PREOP [facility] Stop: 09/29/18 18:00 Last Admin: 09/29/18 13:30 Dose: 300 mg Documented by: [id number] Lactated Ringer's (Lr) 1,000 mls @ 15 mls/hr IV .Q24H [facility] Stop: 09/30/18 05:59 Last Infusion: 09/29/18 14:44 Dose: 0 mls/hr Documented by: [id number] Admin: 09/29/18 13:24 Dose: 15 mls/hr Documented by: [id number] Cefazolin Sodium (Ancef 3000mg) 65 mls @ 130 mls/hr IV PREOP [facility]; Protocol Stop: 09/29/18 18:00 Last Infusion: 09/29/18 19:20 Dose: 0 mls/hr Documented by: [id number] Admin: 09/29/18 14:39 Dose: 130 mls/hr Documented by: [id number] Cefazolin Sodium (Ancef 2000mg) 2,000 mg in 15 mls @ 3.75 mls/min IV Q8H [facility]; Protocol Stop: 09/30/18 07:03 Last Admin: 09/30/18 06:00 Dose: 3.75 mls/min Documented by: [id number] Admin: 09/29/18 23:51 Dose: 3.75 mls/min Documented by: [id number] Lactated Ringer's (Lr) 1,000 mls @ 150 mls/hr IV .Q6H40M [facility] Stop: 10/29/18 19:12 Last Infusion: 09/30/18 04:56 Dose: 0 mls/hr Documented by: [id number] Admin: 09/30/18 02:32 Dose: 150 mls/hr Documented by: [id number] Infusion: 09/30/18 02:32 Dose: 150 mls/hr Documented by: [id number] Admin: 09/29/18 20:18 Dose: 150 mls/hr Documented by: [id number] Miscellaneous (Floseal Hemostatic Matrix 10ml) 26 ml TOP ONCE ONE Stop: 09/29/18 17:48 Last Admin: 09/29/18 17:49 Dose: 26 ml Documented by: [id number]
[2018-09-30] MEDS: DEXAMETHASONE SOD PHOSPHATE 8 MG in SYRINGE 0 ML IV SCH ×2 (12:20→20:08)
--- NOTE | 2018-09-30 12:55 | Orthopedic Progress Note ---
Date of Service September 30, 2018 Assessment & Plan (1) Spinal stenosis, lumbar region with neurogenic claudication: At this time we will continue physical therapy undergo a short course of IV Decadron. Hopefully discharge home later if this week. Present on Admission?: Yes Subjective Back pain is controlled leg symptoms are markedly improved. Physical Exam Physical Exam: Patient is in the chair at the bedside. Is good strength testing. Struggling with some right trochanteric bursitis. Results & Data Vital Signs (Past 12 Hours) Vital Signs Temp Pulse Resp BP Pulse Ox 09/30/18 12:01 36.5 C 69 16 117/69 92 09/30/18 07:16 36.8 C 79 18 136/72 93 09/30/18 03:13 36.8 C 89 14 133/68 93
[2018-09-30] MEDS: PRAVASTATIN SOD 20 MG TAB PO SCH (20:08)
[2018-09-30] MEDS: DOCUSATE SODIUM/SENNA 50/8.6MG TAB PO SCH (20:09)
[2018-10-01] MEDS: DEXAMETHASONE SOD PHOSPHATE 8 MG in SYRINGE 0 ML IV SCH (03:40)
[2018-10-01] MEDS: OXYCODONE HCL IR 5 MG TAB (IMMEDIATE RELEASE) PO PRN (07:10)
[2018-10-01] MEDS: MULTIVITAMIN TAB PO SCH (07:11)
[2018-10-01] MEDS: METOPROLOL TARTRATE 50 MG TAB PO SCH ×2 (07:11→20:48)
--- NOTE | 2018-10-01 09:36 | Hospitalist Progress Note ---
Date of Service October 01, 2018 Assessment & Plan (1) Spinal stenosis, lumbar region with neurogenic claudication: - POD#2 L2-L5 decompression and fusion by Dr. Moss - activity and wound care orders as per ortho - pain control with bowel regimen - PT/OT - monitor H/H for acute blood loss anemia and transfuse blood products PRN -EBL 1000 cc (2) Acute blood loss anemia: H/H stable 11.9/34.6 monitor cbc EBL 1000ml; SALVADOR drain 970ml (3) Hypertension: BP elevated acutely post operatively, likely in setting of post op pain/steroid monitor closely, continue metoprolol (4) Hyperlipidemia: Continue statin (5) DVT prophylaxis: hx of b/l DVT post knee surgery in past Teds/SCDs as per spine orthopedics -recommend re initiating ASA as soon as okay by ortho encouraged pt to ambulate and seated exercises Patient was seen and examined in collaboration with Dr. Peralta, please see addendum Thank you for this consultation. We will follow the patient with you during their hospital stay. You can reach a [facility] via pager @ [phone]. Supervising Physician Co-Signing Physician Notes Patient is seen and examined at bedside. Doing well this morning. Back pain is controlled. Denies any chest pain, shortness of breath, dizziness. Offers no other complaints. Physical therapy, wound care, DVT prophylaxis as per primary team. Agree with above physical findings, assessment and plan and management. I personally reviewed the record. Patient is interviewed and examined at bedside. Patient's care is coordinated with Lula Stuart PA-C. Please refer to the documentation above for details of patient's presentation and for discussion of other issues. Subjective Patient seen and evaluated in room 314-1. POD #[address] Moss. Pt is doing very well this morning. Sitting up in bedside chair. "I have no pain right now." States he already did therapy and walked two sets of stairs. His blood pressure elevated this morning, but he feels related to steroid. Appetite much improved. [place] cath was removed and he is urinating with out difficulty. + BM today. Slept well last evening. Review of Systems Review of Systems: As noted per HPI, 10 systems reviewed and negative unless noted above. Physical Exam Physical Exam: Gen: WD/WN, M, NAD, A&O x3, sitting up in bedside chair HEENT: Normocephalic, atraumatic, conjunctivae moist, sclerae anicteric, mucous membranes moist. Lung: Clear to Auscultation bilaterally, no wheezes/rales/rhonchi Heart: Regular rate, regular rhythm, no murmurs, rubs, or gallops Abdomen: Soft, NT, ND +BS x 4 Extremities: No edema, bilateral teds in place Skin: Warm, no rash, negative turgor. Lumbar dressing CDI, SALVADOR drain in place Results & Data Vital Signs (Past 12 Hours) Vital Signs Temp Pulse Pulse Pulse Resp BP Pulse Ox 10/01/18 07:52 36.8 C 80 20 162/72 H 93 10/01/18 06:09 36.6 C 80 16 142/76 H 92 09/30/18 22:45 37.2 C 78 16 156/64 H 93 Medications Administered Lorazepam (Ativan) 0.5 mg PO Q8H PRN PRN Reason: Sedation/Anxiety Stop: 10/29/18 19:12 Last Admin: 09/30/18 08:52 Dose: 0.5 mg Documented by: [id number] Metoprolol Tartrate (Lopressor) 25 mg PO BID [facility] Stop: 10/29/18 20:59 Last Admin: 10/01/18 07:11 Dose: 25 mg Documented by: [id number] Admin: 09/30/18 20:08 Dose: 25 mg Documented by: [id number] Admin: 09/30/18 07:36 Dose: 25 mg Documented by: [id number] Admin: 09/29/18 21:32 Dose: 25 mg Documented by: [id number] Miscellaneous (Order Awaiting Action) 1 ea N/A QS [facility] Stop: 10/30/18 00:00 Last Admin: 10/01/18 06:49 Dose: Not Given Documented by: [id number] Admin: 09/30/18 23:06 Dose: Not Given Documented by: [id number] Admin: 09/30/18 16:06 Dose: Not Given Documented by: [id number] Admin: 09/30/18 07:33 Dose: Not Given Documented by: [id number] Admin: 09/29/18 23:51 Dose: Not Given Documented by: [id number] Multivitamins (Multivitamin Tab) 1 tab PO DAILY [facility] Stop: 10/30/18 08:59 Last Admin: 10/01/18 07:11 Dose: 1 tab Documented by: [id number] Admin: 09/30/18 07:36 Dose: 1 tab Documented by: [id number] Ondansetron HCl (Zofran) 4 mg IV Q6H PRN PRN Reason: Nausea &/or Vomiting Stop: 10/29/18 19:12 Last Admin: 09/30/18 06:11 Dose: 4 mg Documented by: [id number] Oxycodone HCl (Roxicodone Immediate Rel) 5 - 10 mg PO Q4H PRN PRN Reason: Moderate-Severe Pain Stop: 10/13/18 19:12 Last Admin: 10/01/18 07:10 Dose: 10 mg Documented by: [id number] Admin: 09/30/18 07:36 Dose: 10 mg Documented by: [id number] Pravastatin Sodium (Pravachol) 20 mg PO HS [facility] Stop: 10/29/18 20:59 Last Admin: 09/30/18 20:08 Dose: 20 mg Documented by: [id number] Admin: 09/29/18 21:33 Dose: 20 mg Documented by: [id number] Senna/Docusate Sodium (Senokot S) 2 tab PO HS [facility] Stop: 10/29/18 20:59 Last Admin: 09/30/18 20:09 Dose: Not Given Documented by: [id number] Admin: 09/29/18 21:33 Dose: 2 tab Documented by: [id number] Tramadol HCl (Ultram) 50 - 100 mg PO Q4H PRN PRN Reason: Moderate-Severe pain Stop: 10/29/18 19:12 Last Admin: 09/30/18 02:32 Dose: 100 mg Documented by: [id number] Discontinued Medications Acetaminophen (Tylenol) 1,000 mg PO PREOP [facility] Stop: 09/29/18 18:00 Last Admin: 09/29/18 13:31 Dose: 1,000 mg Documented by: [id number] Bupivacaine HCl/Epinephrine Bitart (Sensorcaine/Epinephrine 0.5% Mpf 1:200,000) Confirm Administered Dose 30 ml .ROUTE .STK-MED ONE Stop: 09/29/18 14:22 Last Admin: 09/29/18 15:12 Dose: 30 ml Documented by: [id number] Celecoxib (Celebrex) 200 mg PO PREOP [facility] Stop: 09/29/18 18:00 Last Admin: 09/29/18 19:20 Dose: Not Given Documented by: [id number] Gabapentin (Neurontin) 300 mg PO PREOP [facility] Stop: 09/29/18 18:00 Last Admin: 09/29/18 13:30 Dose: 300 mg Documented by: [id number] Lactated Ringer's (Lr) 1,000 mls @ 15 mls/hr IV .Q24H [facility] Stop: 09/30/18 05:59 Last Infusion: 09/29/18 14:44 Dose: 0 mls/hr Documented by: [id number] Admin: 09/29/18 13:24 Dose: 15 mls/hr Documented by: [id number] Cefazolin Sodium (Ancef 3000mg) 65 mls @ 130 mls/hr IV PREOP [facility]; Protocol Stop: 09/29/18 18:00 Last Infusion: 09/29/18 19:20 Dose: 0 mls/hr Documented by: [id number] Admin: 09/29/18 14:39 Dose: 130 mls/hr Documented by: [id number] Cefazolin Sodium (Ancef 2000mg) 2,000 mg in 15 mls @ 3.75 mls/min IV Q8H [facility]; Protocol Stop: 09/30/18 07:03 Last Admin: 09/30/18 06:00 Dose: 3.75 mls/min Documented by: [id number] Admin: 09/29/18 23:51 Dose: 3.75 mls/min Documented by: [id number] Lactated Ringer's (Lr) 1,000 mls @ 150 mls/hr IV .Q6H40M [facility] Stop: 10/29/18 19:12 Last Infusion: 09/30/18 04:56 Dose: 0 mls/hr Documented by: [id number] Admin: 09/30/18 02:32 Dose: 150 mls/hr Documented by: [id number] Infusion: 09/30/18 02:32 Dose: 150 mls/hr Documented by: [id number] Admin: 09/29/18 20:18 Dose: 150 mls/hr Documented by: [id number] Dexamethasone Sodium Phosphate (8 mg/ Syringe) 2 mls @ 1 mls/min IV Q8H [facility] Stop: 10/01/18 04:01 Last Admin: 10/01/18 03:40 Dose: 1 mls/min Documented by: [id number] Admin: 09/30/18 20:08 Dose: 1 mls/min Documented by: [id number] Admin: 09/30/18 12:20 Dose: 1 mls/min Documented by: [id number] Miscellaneous (Floseal Hemostatic Matrix 10ml) 26 ml TOP ONCE ONE Stop: 09/29/18 17:48 Last Admin: 09/29/18 17:49 Dose: 26 ml Documented by: [id number] Polyethylene Glycol (Miralax Powder Packet) 17 gm PO Q6 [facility] Stop: 10/30/18 05:59 Last Admin: 09/30/18 18:11 Dose: Not Given Documented by: [id number] Admin: 09/30/18 12:20 Dose: 17 gm Documented by: [id number] Admin: 09/30/18 06:00 Dose: 17 gm Documented by: [id number]
--- NOTE | 2018-10-01 13:51 | Orthopedic Progress Note ---
Date of Service October 01, 2018 Assessment & Plan (1) Spinal stenosis, lumbar region with neurogenic claudication: This time we will continue physical therapy monitor his SALVADOR output anticipate discharge home tomorrow. Present on Admission?: Yes Subjective Patient's back pain is controlled leg symptoms improving. Physical Exam Physical Exam: On exam he is standing and ambulating comfortably. Good strength testing. Results & Data Vital Signs (Past 12 Hours) Vital Signs Temp Pulse Pulse Resp BP Pulse Ox 10/01/18 07:52 36.8 C 80 20 162/72 H 93 10/01/18 06:09 36.6 C 80 16 142/76 H 92
[2018-10-01] MEDS: DOCUSATE SODIUM/SENNA 50/8.6MG TAB PO SCH (20:48)
[2018-10-01] MEDS: PRAVASTATIN SOD 20 MG TAB PO SCH (20:48)
[2018-10-02] MEDS: OXYCODONE HCL IR 5 MG TAB (IMMEDIATE RELEASE) PO PRN (07:15)
[2018-10-02] MEDS: MULTIVITAMIN TAB PO SCH (07:16)
[2018-10-02] MEDS: METOPROLOL TARTRATE 50 MG TAB PO SCH (07:16)
--- NOTE | 2018-10-02 12:44 | Hospitalist Progress Note ---
Date of Service October 02, 2018 Assessment & Plan (1) Spinal stenosis, lumbar region with neurogenic claudication: POD#3 L2-L5 decompression and fusion by Dr. Moss activity and wound care orders as per ortho Pain control with bowel regimen Continue PT/OT Plan to be discharged home today (2) Acute blood loss anemia: H/H stable 11.9/34.6 monitor CBC EBL 1000ml; SALVADOR drain 970ml (3) Hypertension: BP slightly elevated likely due to pain and steroid use monitor closely, continue metoprolol (4) Hyperlipidemia: Continue statin (5) DVT prophylaxis: hx of b/l DVT post knee surgery in past Teds/SCDs as per spine orthopedics encouraged pt to ambulate and seated exercises Thank you for this consultation. We will follow the patient with you during their hospital stay. You can [facility] via pager @ [phone]. Subjective Patient is seen and examined at bedside Doing much better today Back pain is controlled Ambulated in hallway this morning with no issues Denies any chest pain, shortness of breath, dizziness, nausea, abdominal pain Plan to be discharged home today Review of Systems Review of Systems: All systems reviewed & are unremarkable except as noted in HPI & below Physical Exam Physical Exam: Gen: WD/WN, M, NAD, A&O x3, sitting up in bedside chair HEENT: Normocephalic, atraumatic, conjunctivae moist, sclerae anicteric, mucous membranes moist. Lung: Clear to Auscultation bilaterally, no wheezes/rales/rhonchi Heart: Regular rate, regular rhythm, no murmurs, rubs, or gallops Abdomen: Soft, NT, ND +BS x 4 Extremities: No edema, bilateral teds in place Skin: Warm, no rash, negative turgor. Lumbar dressing CDI Results & Data Vital Signs (Past 12 Hours) Vital Signs Temp Pulse Pulse Pulse Pulse Resp BP 10/02/18 12:13 36.6 C 80 71 95 H 79 17 146/75 H 10/02/18 07:04 36.6 C 71 17 146/75 H BP Pulse Ox 10/02/18 12:13 158/75 H 96 10/02/18 07:04 96
--- NOTE | 2018-10-02 15:59 | Discharge Summary ---
Date of Service October 02, 2018 Admission HPI Per Admitting Provider 72-year-old male with chronic persistent back in bilateral leg pain and after failing extensive course of nonoperative care is here for surgical intervention. Principal Diagnosis Lumbar spinal stenosis with neurogenic claudication Discharge Data Allergies Allergy/AdvReac Type Severity Reaction Status Date / Time bacitracin Allergy Mild Swelling Verified 09/29/18 13:00 at applicatin site naproxen AdvReac Mild Elevated BP Verified 09/29/18 13:00 Consultations 09/29/18 19:13 Consult Case Management - Discharge Planning Routine Consult Hospitalist Routine Procedures Performed Operation Date: 09/29/18 14:05 Actual Procedures p L2-L5 Decompression and Fusion Placement of interbody,and cage at L3-L4 and L4-L5 Spinal Cord Monitoring(Not Applicable) - German Moss DO Ordered Studies 09/29/18 14:05 FL fluoroscopy <1hr Routine FL lumbar spine 2-3V Routine Hospital Course (1) Spinal stenosis, lumbar region with neurogenic claudication: Patient underwent lumbar decompression fusion tolerated this well was taken to the orthopedic floor postoperative. Postop day 1 she was up and ambulatory leg pain improving. He progressed to postop day #2. SALVADOR drain decre asing appropriately. Subsequently discharged home on postop day #3. Discharge instructions can be found in chart for further review. Total Time Total Time Spent Total Time Spent (In Minutes): 20 minutes Discharge Plan Discharge Items Patient Disposition: Home - Self-Care Reason For Visit: Spinal Stenosis, Lumbar Region without Neurogenic Discharge Diagnosis: lumbar stenosis Discharge Goals: Improve function Activity: Per 'Additional Instructions' section Non-emergency contact: Primary Care Provider Call non-emergency contact if: you have any medication questions Follow-up/Referrals: Jace Harrington [Primary Care Provider] - Diet: Regular Addtl Provider Instructions: ACTIVITY RECOMMENDATIONS: SELF CARE INSTRUCTIONS AFTER THORACIC/LUMBAR FUSIONS 1. You may walk to your tolerance. It is good exercise for your legs and back. Expect some back and intermittent leg aches and pains. 2. You may perform "counter-top" level activities (make a sandwich, anuj with a project, etc.). 3. No bending or lifting of more than 10 pounds or back twisting of any nature (roll like a log when turning in bed). 4. You may ride in a car for 20-30 minutes at a time. No driving until after your first visit with your doctor. 5. Frequent changes of position and restricting sitting to 30 minutes at a time will help limit the amount of back spasms and stiffness you may experience. 6. You may discontinue the use of ambulatory aids (cane, crutches, etc.) once your strength and confidence allow. 7. You may trimming caser the shower and let water strike your incision when you arrive home at least once daily. Do not take a tub bath, sit in a hot tub or go into a swimming pool until after your first recheck in the office. SPECIAL CARE INSTRUCTIONS: VERY IMPORTANT TO READ AND REVIEW A. Your surgical incision has been closed with a cosmetic suture under the skin that will dissolve in about 6 weeks. In 14 days, you can use a pair of clean scissors and cut the suture that is left outside of the skin at the ends of your incision. 1. The small skin tapes can be removed 7 days after surgery if they have not fallen off by that point. 2. You may keep the wound open to air as much as possible to promote healing after post-op day number 5 unless told otherwise by your doctor. 3. If you think the wound looks like it is becoming infected (redness or worsening drainage) and/or you are experiencing fever, chill or worsening back pain and muscle spasms, contact the office so that we may evaluate you as soon as possible. B. Complications are uncommon, but please contact us if you have any signs or symptoms of: 1. wound infection (fever higher than 102.5 degrees F, redness, separation of wound, drainage, or increasing pain from the incision) 2. blood clots in legs (pain, swelling, redness and warmth in legs) 3. urinary tract infection (fever higher than 102.5 degrees F, burning upon urination or increased frequency of urination) 4. nerve problems (inability to walk on your toes or heels, numbness, loss of bowel or bladder control) 5. any other symptoms that concern you C. Please call the office at if you have any concerns or questions about your operation or recovery. D. No smoking! Smoking drastically decreases the chance of a solid fusion. E. Do not take any anti-inflammatory medications (Indocin, Advil, Motrin, Aspirin, Naprosyn, etc.) as these may inhibit the chance of a solid fusion. Tylenol is okay to take for pain. MANAGING PAIN AFTER SPINAL SURGERY 1. Narcotic medication is intended for short-term use and will be provided for surgical pain. Surgical pain usually lasts for a period of 4-6 weeks. Narcotic medication includes Percocet, Vicodin, Darvocet, Tylenol #3 or Lortab. 2. Longer-term pain is more appropriately treated with non-narcotic medication such as Tylenol ES. 3. Muscle spasm is not appropriately treated with narcotics. Muscle relaxers such as Soma, Flexeril or Skelaxin can be used along with Tylenol ES. 4. Remember that we all live with some "aches and pains". This is not unusual or uncommon after an injury or as we get older. a. Back pain is expected and may include muscle spasms for 4 to 6 weeks after surgery. The pain should gradually improve. If the pain worsens for no apparent reason, please contact the office. b. Intermittent leg pain may also be experienced and should not be concerned about unless it worsens for no apparent reason. If so, please contact the office. 5. We will provide appropriate medication within the normal guidelines of their prescribed use. We will also be very cautious and aware of potential abuse and extended duration of patients' medication needs. a. Pain medications are for your comfort and to assist with sleep and rest so that the tissue can heal. They are not provided in order to return to normal activity and should not be used through the day. To do so or worsening pain at night can result from ongoing tissue damage and development of tolerance to the prescribed medicine. 6. Please allow 2-3 days to process refills. Prescriptions will not be mailed but must be picked up at the office. FOLLOW UP VISIT: Keep your scheduled follow-up appointment. Any questions, please call the office at . Prescriptions: New tramadol 50 mg Tablet 50 mg PO Q4H PRN (Reason: Pain, Moderate) Qty: 30 RF: 0 oxycodone 5 mg Tablet 5 mg PO Q4H PRN (Reason: Pain, Severe) Qty: 30 RF: 0 Continued multivitamin Tablet 1 tab PO DAILY RF: 0 saw palmetto 160 mg Capsule 160 mg PO BID RF: 0 metoprolol tartrate 50 mg Tablet 25 mg PO BID RF: 0 pravastatin 20 mg Tablet 20 mg PO HS RF: 0 Excedrin Extra Strength 250-250-65 mg Tablet 2 tab PO HS PRN (Reason: Pain) RF: 0 Ocuvite Eye Plus Multi 200-15-150 mcg Tablet 2 tab PO DAILY RF: 0 Discontinued ibuprofen 800 mg Tablet 800 mg PO TID PRN (Reason: Pain) RF: 0 Stand-Alone Forms: [employer] [facility] [employer], Opioid Pain Management Discharge Orders: Discharge Order (Routine); Ordered 10/02/18 Ordered By: German Moss Admission Data Admit Date/Time: 09/29/18 17:56 Attending Provider: German Moss Admit Provider: German Moss Primary Care Provider: Jace Harrington Other Providers: Austin Peralta Service: Surgical Services Other Interventions: Discharge Summary Assessment (RN) Last Done: 10/02/18 12:13 DC Date/Time DO NOT enter until pt leaves facility: 10/02/18 14:12
== END 2018-10-02 14:12 | disposition home or self-care (01) | DRG 455 ==
LOC: ASU 12:30 → 3E 17:56

== ENCOUNTER 2021-12-18 10:10 | Inpatient (IN) ==
--- NOTE | 2021-11-28 10:28 | PAT Medication Instructions ---
Medication Instructions Date of Service November 28, 2021 Home Medications lpghkhj-fpmlmzpocewwu-ilnigzeg 250 mg-250 mg-65 mg tablet (Excedrin Extra Strength) 2 tab PO HS PRN Pain zhvsebrb-sjj-QD 200 mcg-vit K 15 mcg-lycope 150 jbx-labhgt-gipj tablet (Ocuvite Eye Plus Multi) 2 tab PO BID multivitamin 1 tab PO QAM pravastatin 20 mg tablet 20 mg PO HS saw palmetto 160 mg capsule 160 mg PO BID erythromycin 5 mg/gram (0.5 %) eye ointment 1 ea ophthalmic (eye) QAM lysine 500 mg capsule 500 mg PO QAM magnesium citrate 100 mg tablet 100 mg PO QAM metoprolol tartrate 25 mg tablet 25 mg PO BID ASK your surgeon for instructions mzgrvxp-zdgpvhmyhnxid-ixgqbbiv 250 mg-250 mg-65 mg tablet (Excedrin Extra Strength) 2 tab PO HS PRN Pain STOP taking 2 weeks before surgery xyocjwon-qnq-TL 200 mcg-vit K 15 mcg-lycope 150 fjc-mvimrj-iywm tablet (Ocuvite Eye Plus Multi) 2 tab PO BID saw palmetto 160 mg capsule 160 mg PO BID lysine 500 mg capsule 500 mg PO QAM DO NOT take the morning of surgery multivitamin 1 tab PO QAM magnesium citrate 100 mg tablet 100 mg PO QAM Take morning of surgery With a small sip of water, OTHERWISE NOTHING TO EAT OR DRINK AFTER MIDNIGHT: erythromycin 5 mg/gram (0.5 %) eye ointment 1 ea ophthalmic (eye) QAM metoprolol tartrate 25 mg tablet 25 mg PO BID Take evening before surgery pravastatin 20 mg tablet 20 mg PO HS metoprolol tartrate 25 mg tablet 25 mg PO BID Other Notes If you have any questions please call us at [phone] or [phone] or [phone] or [phone]
--- NOTE | 2021-12-04 12:57 | Anesthesiology Consultation ---
Date of Service December 04, 2021 Assessment & Plan (1) Encounter for pre-operative examination: Chart Review Chart Review: Acceptable Risk for Surgery (pending surgeon ordered PCP clearance (12/11/21) and preop Covid testing results ) and Patient seen in Pre Admission Testing - Awaiting PCP clearance 12/11/21 Per PAT appt on 12/04/21, patient denies any recent travel or large group activities. No known Covid positive exposures or Covid related symptoms. No known Covid infection in the past 90 days. Pt is vaccinated for Covid. Preop Covid testing scheduled 12/14/21 = will await results. Educated on importance of self quarantining, social distancing and wearing mask in public for the patient one week prior to surgery and after Covid testing done L2-L5 decompression/fusion 09/29/18= Done under GA with Grade 1 view with MAC #3. ETT #8.0. Atraumatic ETT x 1. Smooth IV induction. Teaching & Discussion Pre-Anesthesia Teaching/Discussion Notes: Instructed NPO after midnight before surgery,except medications with 15 cc of water. Medication instructions provided according to the [facility] guidelines. History Surgery Operation Date: 12/18/21 07:45 Proposed Procedures p T12-L2 Decompression and Fusion, Spinal Cord Monitoring - German Moss, Height/Weight Height: 6 ft 3 in Weight: 132.8 kg Allergies Allergy/AdvReac Type Severity Reaction Status Date / Time bacitracin Allergy Mild Swelling Verified 11/23/21 13:07 at applicatin site naproxen AdvReac Mild Elevated BP Verified 11/23/21 13:07 prednisone AdvReac Mild Palpitation Verified 11/23/21 13:08 s Medications Home Medications Medication Instructions Recorded Confirmed Last Taken ljqumfq-pifretsrugwvv-sahssibq 250 2 tab PO HS PRN Pain 09/18/18 11/23/21 09/22/18 mg-250 mg-65 mg tablet (Excedrin Extra Strength) qalnadce-aaf-MO 200 mcg-vit K 15 2 tab PO BID 09/18/18 11/23/21 09/22/18 mcg-lycope 150 lkc-pbcssh-lwmx tablet (Ocuvite Eye Plus Multi) multivitamin 1 tab PO QAM 09/18/18 11/23/21 09/22/18 pravastatin 20 mg tablet 20 mg PO HS 09/18/18 11/23/21 09/28/18 19:00 saw thaniao 160 mg capsule 160 mg PO BID 09/18/18 11/23/21 09/22/18 erythromycin 5 mg/gram (0.5 %) eye 1 ea ophthalmic (eye) QA 11/23/21 11/23/21 Unknown ointment lysine 500 mg capsule 500 mg PO QAM 11/23/21 11/23/21 Unknown magnesium citrate 100 mg tablet 100 mg PO QAM 11/23/21 11/23/21 Unknown metoprolol tartrate 25 mg tablet 25 mg PO BID 11/23/21 11/23/21 Unknown Past Medical History Medical History (Updated 12/05/21 @ 13:19 by Tasha Abdi PA-C) BPH (benign prostatic hyperplasia) Chronic back pain Deep vein thrombosis - To bilateral LEs following knee arthroscopy in 2016 - Put on Xarelto x one year- had repeat LE imaging one year later- (had calcifications only)- - Xarelto d/c'ed- recommended ASA- patient currently taking two Excedrin BID - "Chronic DVT of left LE" per PCP records ; no longer follows with heme- denies hx of clotting disorder - Has since had bilateral MACI and lumbar surgery- put on Coumadin post op without issues - Pt state surgeon aware of hx Degenerative disc disease Hyperlipidemia Hypertension Knee osteoarthritis Getting Synvisc injections q 6 months Oral and injectable steroids cause palpitations Macular degeneration LEFT EYE Exercise / Class Metabolic Activity III < 4 Walking/Shop/Light housework (one flight of stairs - no chest pain, mild SOB ) Past Family History Family History Mother FHx: breast cancer Sister FHx: breast cancer Past Surgical History Surgical History History of arthroscopy LEFT KNEE History of colonoscopy History of open reduction and internal fixation (ORIF) procedure LEFT ARM ( A CHILD) History of tonsillectomy History of total hip arthroplasty LEFT/RIGHT Hx of spinal fusion 2019 dr moss S/P foot surgery S/P lateral meniscal repair left Past Anesthesia History No Hx of Anesthesia Complications and No Family Hx of Anesthesia Complications (with exception to mother - combative post op ) History of PONV No Hx of PONV, No Hx of Motion Sickness and Other (Had vertigo in 2017 with knee surgery - no issues since ) Social History Smoking Status: Never smoker Do You Dip or Chew Tobacco: No Hx Alcohol Use: Yes Alcohol type: wine alcohol intake frequency: holidays/special occasions only Hx Substance Use: No substance use type: does not use Review of Systems Palpitations only with anxiety - chronic and stable Snoring in the past - sleeps in recliner due back pain - no hx of sleep study Patient denies chest pain, shortness of breath at rest, reflux, cough, wheezing. No hx of seizures, stroke, LA. No hx of blood transfusions Physical Exam Vital Signs VITALS BP 174/80 (check routinely- usually 120-130s/60s at home) P 61 TEMP 98.3 SP02 97% RESP 16 Constitutional no acute distress ENMT Mouth: no TMJ clicking Thyromental Distance: > or= 3.5 Finger Breadths (3.5) Mallampati Class: I Crowns to side teeth/molars Neck + thick neck (mild ) and + limited neck extension (mild to moderate ) Respiratory normal respiratory effort; no respiratory distress Auscultation: lungs clear to auscultation bilaterally; no wheezes Occ missed beat Cardiovascular Rate/Rhythm: regular rate and regular rhythm Heart Sounds: no murmur Vessels: no carotid bruit Musculoskeletal Spine: no pain with cervical ROM Extremities: extremities normal to inspection Psychiatric Orientation: alert Lab Results Anesthesia Preop Results Results Anesthesia Widget: WBC 5.04 K/ul (4.8-10.8) 12/04/21 Hgb 15.7 g/dl (14.0-18.0) 12/04/21 Hct 47.5 % (40.1-51.0) 12/04/21 Plt 212 K/uL (130-400) 12/04/21 Na 140 mmol/L (136-145) 12/04/21 K 3.9 mmol/L (3.5-5.1) 12/04/21 Cl 107 mmol/L (98-107) 12/04/21 CO2 27 mmol/L (21-32) 12/04/21 BUN 13 mg/dl (6-23) 12/04/21 Creat 0.80 mg/dl (0.6-1.4) 12/04/21 Glucose Level 114 mg/dl (70-99(Fasting)) H 12/04/21 PT 10.8 Seconds (9.0-12.0) 12/04/21 PTT 25.2 Seconds (21.0-31.0) 12/04/21 INR 1.0 (0.9-1.1) 12/04/21 Urine Color Yellow 12/04/21 Urine Appearance Clear (Clear) 12/04/21 Urine pH 7.5 (4.5-7.5) 12/04/21 Urine Specific [place] 1.005 (1.000-1.030) 12/04/21 Urine Protein Negative (Negative) 12/04/21 Urine Glucose (UA) Negative (Negative) 12/04/21 Urine Ketones Negative (Negative) 12/04/21 Urine Blood Negative (Negative) 12/04/21 Urine Nitrite Negative (Negative) 12/04/21 Urine Bilirubin Negative (Negative) 12/04/21 Urine Urobilinogen Negative (Negative) 12/04/21 Urine Leukocyte Esterase Negative (Negative) 12/04/21 Blood Type B Positive 12/04/21 Antibody Screen NEGATIVE 12/04/21 Testing Electrocardiogram Date: 12/04/21 SR with frequent PVCs at 68bpm Otherwise normal EKG per cardio. Chest X-Ray Date: 12/04/21 Findings: + NAD and + cardiomegaly (mild )
[~2021-12-18 10:10] MED LIST changes: -CEFAZOLIN 3000MG 65 ML IV SCH; +GABAPENTIN 300 MG CAP PO SCH; -GABAPENTIN 300 MG PO SCH; +SUGAMMADEX SODIUM 200 MG/2 ML VIAL IV ONE
[2021-12-18] MEDS ORDERED: fentaNYL citrate 100 MCG/2 ML VIAL IV PRN (11:51)
[2021-12-18] MEDS ORDERED: ePHEDrine sulfate 50 MG/ML AMP IV PRN (11:51)
[2021-12-18] MEDS ORDERED: ONDANSETRON INJ 2 MG/ML 2 ML VIAL IV PRN ×2 (11:51→16:07)
[2021-12-18] MEDS ORDERED: ATROPINE SULFATE 0.1 MG/ML 10ML SYR IV PRN (11:51)
[2021-12-18] MEDS ORDERED: HYDROmorphone INJ 2 MG/ML SYR/VIAL IV PRN (11:51)
--- NOTE | 2021-12-18 11:56 | History & Physical Bridge Note ---
Date of Service December 18, 2021 History & Physical Bridge Note I have examined the patient, reviewed the History & Physical and in the interval since the performance of the History & Physical I have noted the following changes of clinical significance: no changes noted
--- NOTE | 2021-12-18 11:57 | History & Physical Report ---
Date of Service December 18, 2021 Assessment & Plan (1) Spinal stenosis, lumbar region with neurogenic claudication: Plan: T12-L2 decompression and fusion History of Present Illness Chief Complaint: Back and leg pain Primary Care Provider: Jace Harrington This is a 76-year-old male who presents with chronic persistent back and leg pain. Team course of nonoperative care is here for surgical invention. Allergies Allergy/AdvReac Type Severity Reaction Status Date / Time bacitracin Allergy Mild Swelling Verified 12/18/21 10:47 at applicatin site naproxen AdvReac Mild Elevated BP Verified 12/18/21 10:47 prednisone AdvReac Mild Palpitation Verified 12/18/21 10:47 s Home Medications Medication Instructions Recorded Confirmed Type egoexnq-qspxuujjnlgop-irtqbadw 250 2 tab PO HS PRN Pain 09/18/18 12/18/21 History mg-250 mg-65 mg tablet (Excedrin Extra Strength) zdwwizzb-jih-XX 200 mcg-vit K 15 2 tab PO BID 09/18/18 12/18/21 History mcg-lycope 150 sdx-jhtuov-ekon tablet (Ocuvite Eye Plus Multi) multivitamin 1 tab PO QAM 09/18/18 12/18/21 History pravastatin 20 mg tablet 20 mg PO HS 09/18/18 12/18/21 History saw palmetto 160 mg capsule 160 mg PO BID 09/18/18 12/18/21 History erythromycin 5 mg/gram (0.5 %) eye 1 ea ophthalmic (eye) QAM 11/23/21 12/18/21 History ointment lysine 500 mg capsule 500 mg PO QAM 11/23/21 12/18/21 History magnesium citrate 100 mg tablet 100 mg PO QAM 11/23/21 12/18/21 History metoprolol tartrate 25 mg tablet 25 mg PO BID 11/23/21 12/18/21 History Past Med/Surg History Medical History BPH (benign prostatic hyperplasia) Chronic back pain Deep vein thrombosis - To bilateral LEs following knee arthroscopy in 2017 - Put on Xarelto x one year- had repeat LE imaging one year later- (had calcifications only)- - Xarelto d/c'ed- recommended ASA- patient currently taking two Excedrin BID - "Chronic DVT of left LE" per PCP records ; no longer follows with heme- denies hx of clotting disorder - Has since had bilateral MACI and lumbar surgery- put on Coumadin post op without issues - Pt state surgeon aware of hx Degenerative disc disease Hyperlipidemia Hypertension Knee osteoarthritis Getting Synvisc injections q 6 months Oral and injectable steroids cause palpitations Macular degeneration LEFT EYE Surgical History History of arthroscopy LEFT KNEE History of colonoscopy History of open reduction and internal fixation (ORIF) procedure LEFT ARM ( A CHILD) History of tonsillectomy History of total hip arthroplasty LEFT/RIGHT Hx of spinal fusion 2019 dr bloom S/P foot surgery S/P lateral meniscal repair left Family History Mother FHx: breast cancer Sister FHx: breast cancer Social History Smoking Status: Never smoker Second Hand Exposure: No; Do You Dip or Chew Tobacco: No; Tobacco Cessation Education Requested by Patient: No Hx Alcohol Use: Yes Alcohol type: wine Hx Substance Use: No Preferred Language: Estonian Communication Ability: Effective Spray Ii Painter Required: No Beliefs That Will Affect Care: None marital status: Current Living Situation: Spouse Other Information That Helps Us Care for You: No Feels Safe at Home: Yes Safety Concerns: Feels Safe At This Time Assistive Devices: Cane and Glasses Assistive Devices Comment: uses cane occ. Physical Exam Physical Exam: Patient is alert and oriented Heart regular rhythm Lungs clear Results & Data Results & Data ([facility]) Vital Signs (Past 12 Hours) Vital Signs Temp Pulse Resp BP Pulse Ox O2 Del Method 12/18/21 10:36 36.8 C 96 H 20 196/104 H 96 Room Air
[2021-12-18] MEDS ORDERED: BUPIVACAINE/EPINEPHRINE 0.25% 1:200,000 30 ML VIAL ONE (12:05)
[2021-12-18] MEDS ORDERED: ceFAZolin 330 MG/ML 1 GM VIAL ONE (12:05)
[2021-12-18] MEDS ORDERED: PROPOFOL IV EMULSION 10 MG/ML 20 ML VIAL IV ONE (12:10)
[2021-12-18] MEDS ORDERED: DEXAMETHASONE SOD INJ 4 MG/ML VIAL ONE (12:10)
[2021-12-18] MEDS ORDERED: HYDROmorphone INJ 2 MG/ML SYR/VIAL ONE (12:10)
[2021-12-18] MEDS ORDERED: LIDOCAINE 2% MPF LOCAL 5 ML VIAL INFIL ONE (12:10)
[2021-12-18] MEDS ORDERED: ROCURONIUM BROMIDE 10 MG/ML 5 ML VIAL IV ONE (12:10)
[2021-12-18] MEDS ORDERED: PHENYLEPHRINE 100MCG/ML 5ML SYR ONE (12:10)
[2021-12-18] MEDS ORDERED: ePHEDrine sulfate 50 MG/ML AMP ONE (12:10)
[2021-12-18] MEDS ORDERED: ONDANSETRON INJ 2 MG/ML 2 ML VIAL ONE (12:10)
[2021-12-18] MEDS ORDERED: FLOSEAL HEMOSTATIC MATRIX 10ML TOP ONE (13:11)
--- NOTE | 2021-12-18 14:19 | Operative Report ---
Post Operative Report Pre & Post Diagnosis Operation Date: 12/18/21 12:15 Pre-Op Diagnosis: Neurogenic CLaudication from Spinal Stenosis T12-L2 Post-Op Diagnosis: Neurogenic CLaudication from Spinal Stenosis T12-L2 I identified the patient and participated in the time-out.: Yes Procedure Operation Date: 12/18/21 12:15 Actual Procedures 1 lumbar decompression with bilateral medial facetectomies and foraminotomies T12-L1 and L1-L2. #2 posterior spinal fusion T12-L2. #3 placement of posterior instrumentation T12-L2 with connectors to the L2-L3 jesus. #4 interbody fusion L1-L2. #5 placement of Spira 10 x 26 mm cage at L1-L2. #6 placement locally harvested morselized autograft in the posterior gutters. #7 placement of I factor combined with V toss in interbody space and posterior lateral gutters. Surgeon German Moss, DO Lightning Rod Erector Angy Lopez Estimated Blood Loss 150 Findings See Below The patient is 6 foot 3 weighing over 130 kg with a BMI in excess of 36. The patient's body habitus did contribute to significant technical difficulty required deeper retractors and longer instruments in order to perform his procedure. This at least 50% increased operative time. Specimens None Indications This is a 76-year-old male who presents with above-mentioned diagnosis after failed course of nonoperative care is here for surgical invention. Description of Procedure Patient was met with identified informed consent obtained. Patient was then taken to the operative suite underwent intubation placed in a prone position on the [place] table on top of the Braden frame. All bony prominences well-padded eyes inspected to ensure no external pressure placed upon them. This point the thoracolumbar spine was prepped and draped in normal sterile fashion. Sharp dissection with the assistance of Bovie cautery performed down to and exposing the lamina transverse processes of T12-L1 and the L2-L3 jesus from the previous surgery. From a caudal to cephalad fashion complete laminectomy of L1 and T12 was performed including bilateral medial facetectomies and foraminotomies addressing severe spinal stenosis. Pedicle screws then placed in T12 and L1. Then by way of transforaminal approach on the left complete discectomy of L1-L2 was performed endplates curetted to subcortical bleeding bone and a 10 x 26 mm spiral cage with I factor tapped in position. The proper size rods were then contoured and locked into position and attached to the previous jesus by way of connectors. The transverse processes of T12-L1 and L2 were then burred to subcortical bleeding bone. I factor combined with V toss and locally harvested morselized autograft was placed in the posterior gutters. 15 round SALVADOR drain inserted. The incision was then closed with 1 Vicryl in the fascia 2-0 Vicryl subcutaneously and 4 Monocryl for final skin closure. Steri-Strip sterile dressings placed. Patient waken taken PACU stable condition. Please note spinal cord monitoring was utilized at the procedure no changes noted. Lastly Angy Lopez was present out the entire procedure and while the patient positioning complex portions of the surgery and final skin closure. I attest to the content of the Intraoperative Record and any orders documented therein. Any exceptions are noted below.
[2021-12-18] MEDS ORDERED: LABETALOL HCL IV 5 MG/ML 20ML IV ONE (14:22)
--- NOTE | 2021-12-18 14:49 | Fluoroscopy Report ---
FL lumbar spine 2-3V CLINICAL HISTORY: T12-L2 Decompression COMPARISON STUDY: Lumbar spine fluoroscopic images September 29, 2018. FLUOROSCOPY TIME: 24 seconds. FLUOROSCOPIC IMAGES: 2 FINDINGS: Exact localization is difficult given partial visualization of the spine. However, these im ages demonstrate suspected interval T12-L2 posterior decompression and fusion with L1-2 discectomy an d interbody spacer placement. Previous lumbar spine fusion is noted. IMPRESSION: Fluoroscopy provided during T12-L2 posterior decompression, fusion and L1-L2 discectomy. ACT 112: Negative or not required by law. Electronically signed by: Paul Johnston M.D. 12/18/2021 2:48 PM
--- NOTE | 2021-12-18 15:30 | Anesthesiology Progress Note ---
Date of Service December 18, 2021 Anesthesia Post Procedure Vital Signs Vital Signs: Temp Pulse Pulse Resp BP Pulse Ox O2 Del Method 12/18/21 15:05 36 C L 79 20 172/93 H 95 Room Air 12/18/21 14:55 81 14 178/93 H 99 Oxymask 12/18/21 14:45 77 13 167/93 H 97 Oxymask 12/18/21 15:15 72 12 164/84 H 93 Nasal Cannula 12/18/21 14:39 36.4 C L 86 20 175/84 H 93 Oxymask 12/18/21 10:36 36.8 C 96 H 20 196/104 H 96 Room Air O2 Flow Rate 12/18/21 15:05 12/18/21 14:55 9 12/18/21 14:45 9 12/18/21 15:15 2 12/18/21 14:39 9 12/18/21 10:36 Pain Intensity Bilateral Back: Pain Intensity: 1 Transfer of Care Handoff Completed per policy Notes Mental Status: alert / awake / arousable and participated in evaluation Patient Amnestic to Procedure: Yes Nausea / Vomiting: adequately controlled Pain: adequately controlled Airway Patency, RR, SpO2: stable & adequate BP & HR: stable & adequate Hydration State: stable & adequate Anesthetic Complications: no major complications apparent and Pt Satisfied with anesthetic care Notes: pt had NSST changes at begining of case. They were captured on EKG after. Pt without chest pain. Pt ok for d/c to floor
[2021-12-18] MEDS ORDERED: ONDANSETRON 4 MG OD TAB PO PRN (16:07)
[2021-12-18] MEDS ORDERED: NALOXONE HCL 0.4 MG/1 ML VIAL/CARP IV PRN (16:07)
[2021-12-18] MEDS ORDERED: traMADol HCL 50 MG TABLET PO PRN (16:07)
[2021-12-18] MEDS ORDERED: MAGNESIUM HYDROXIDE SUSP 30 ML UDC PO PRN (16:07)
[2021-12-18] MEDS ORDERED: diphenhydrAMINE Capsule 25 MG CAP PO PRN (16:07)
[2021-12-18] MEDS ORDERED: SOD PHOSPHATE/SOD BIPHOSPHATE ENEMA 132 ML BTL PR PRN (16:07)
[2021-12-18] MEDS ORDERED: ACETAMINOPHEN 1,000 MG/100 ML VIAL IV PRN (16:07)
[2021-12-18] MEDS ORDERED: HYDROmorphone INJ 1 MG/ML SYRINGE IV PRN (16:07)
[2021-12-18] MEDS ORDERED: hydrOXYzine HCl 25 MG TAB PO PRN (16:07)
[2021-12-18] MEDS ORDERED: ALUMINUM/MAGNESIUM SUSP 30 ML UDC PO PRN (16:07)
[2021-12-18] MEDS ORDERED: PROMETHAZINE HCL 12.5 MG in SODIUM CHLORIDE 0.9% 50 ML IV PRN (16:07)
[2021-12-18] MEDS ORDERED: HYDROmorphone INJ 0.5 MG/0.5 ML SYR IV PRN (16:07)
[2021-12-18] MEDS ORDERED: LORazepam 0.5 MG TAB PO PRN (16:07)
[2021-12-18] MEDS ORDERED: FAMOTIDINE 20 MG TAB PO PRN (16:07)
[2021-12-18] MEDS ORDERED: bisacodyL 10 MG SUPP PR PRN (16:07)
[2021-12-18] MEDS ORDERED: LORazepam 0.5 MG in SYRINGE 0.25 ML IV PRN (16:07)
[2021-12-18] MEDS ORDERED: METOCLOPRAMIDE HCL INJ 5 MG/ML 2 ML VIAL IV PRN (16:07)
[2021-12-18] MEDS ORDERED: oxyCODONE HCL IR 5 MG TAB (IMMEDIATE RELEASE) PO PRN (16:07)
[2021-12-18] MEDS: SODIUM CHLORIDE 0.9% 1000ML 1,000 ML IV SCH ×2 (16:22→22:48)
--- NOTE | 2021-12-18 16:22 | Hospitalist Consultation ---
Date of Consultation December 18, 2021 Assessment & Plan (1) Spinal stenosis, lumbar region with neurogenic claudication: (2) Degenerative disc disease: (3) Chronic back pain: - Pain management, bowel regimen and DVT ppx per the primary team - PT/OT consults, pt uses a cane for ambulation assistance outside his home at baseline, plans to bring walker when he goes - Follow am CBC to monitor for acute blood loss, hgb 15.7 / hct 47.5 on 12/04/21 preop labs - Anticipate resuming aspirin tomorrow per the primary team - hx of extensive DVT in 2017 s/p meniscus tear (4) Hypertension: - May continue metoprolol tartrate 25 mg BID (5) Hyperlipidemia: - Cont pravastatin 20 mg HS DVT ppx: - teds, scds CODE: Full code Dispo: From home, likely to remain in the hospital x 1-2 days Thank you for involving us in the care of Mr. Shine. Please do not hesitate to call with questions or concerns. Medicine service will follow along. Supervising Physician Co-Signing Physician Notes Patient was seen and examined independently at bedside. Chart reviewed. Case discussed with Maira HERZOG and agree with the documentation above. In summary, this is a 76 year old male with lumbar spinal stenosis s/p back surgery today by Dr Moss. Pain is controlled. Tolerated oral intake without issues. No CP, SOB. AAO, chest clear, heart sounds normal, abd benign, SALVADOR drain +, hendricks+. Surgical management per primary team. Other chronic medical conditions stable. Rest as per the note above. at bedside. Denies any needs or issues currently. History of Present Illness Reason for Consultation: Medical management Requesting Physician: Dr. Moss Attending Physician: German Moss DO History of Present Illness This is a 76-year-old male with PMHx of HTN, HLD, BPH, DVT with history of being on Xarelto which was discontinued, degenerative disc disease, knee osteoarthritis, macular degeneration who presented for elective surgical procedure today 12/18/[address] Moss involving T12-L2 lumbar decompression and fusion. His , Sonia is present at bedside. He reports doing well since coming out of surgery. Pt has tolerated a bag of pretzels and water without difficulty. Pt notes sitting up completely and lying flat are uncomfortable and feels like there is a "pulling" sensation inside of his back. Pt notes neuropathy in his feet bilaterally at baseline, but denies any worsening numbness s/p surgical procedure. He notes walking has been difficult due to pain prior to this surgery and is hopeful that his mobility will be improved. In 2017 pt had extensive DVT after meniscus repair surgery where he required taking xarelto for about 1 year. After that he switched to coumadin because xarelto was unaffordable. Pt currently takes baby aspirin daily. Pt plans on continuing aspirin after surgery and we discussed any other anticoagulation can be discussed with his surgical team after the first 24 hours s/p surgery. Pt was agreeable, and all his questions and concerns were addressed. Allergies Allergy/AdvReac Type Severity Reaction Status Date / Time bacitracin Allergy Mild Swelling Verified 12/18/21 10:47 at applicatin site naproxen AdvReac Mild Elevated BP Verified 12/18/21 10:47 prednisone AdvReac Mild Palpitation Verified 12/18/21 10:47 s Home Medications Medication Instructions Recorded Confirmed Type czyatls-tbiwlwuiqdmru-mpazhbiw 250 2 tab PO HS PRN Pain 09/18/18 12/18/21 History mg-250 mg-65 mg tablet (Excedrin Extra Strength) edkrmijf-mvg-VL 200 mcg-vit K 15 2 tab PO BID 09/18/18 12/18/21 History mcg-lycope 150 oha-vrnxws-dyms tablet (Ocuvite Eye Plus Multi) multivitamin 1 tab PO QAM 09/18/18 12/18/21 History pravastatin 20 mg tablet 20 mg PO HS 09/18/18 12/18/21 History saw palmetto 160 mg capsule 160 mg PO BID 09/18/18 12/18/21 History erythromycin 5 mg/gram (0.5 %) eye 1 ea ophthalmic (eye) QAM 11/23/21 12/18/21 History ointment lysine 500 mg capsule 500 mg PO QAM 11/23/21 12/18/21 History magnesium citrate 100 mg tablet 100 mg PO QAM 11/23/21 12/18/21 History metoprolol tartrate 25 mg tablet 25 mg PO BID 11/23/21 12/18/21 History Patient History Medical History BPH (benign prostatic hyperplasia) Chronic back pain Deep vein thrombosis - To bilateral LEs following knee arthroscopy in 2017 - Put on Xarelto x one year- had repeat LE imaging one year later- (had calcifications only)- - Xarelto d/c'ed- recommended ASA- patient currently taking two Excedrin BID - "Chronic DVT of left LE" per PCP records ; no longer follows with heme- denies hx of clotting disorder - Has since had bilateral MACI and lumbar surgery- put on Coumadin post op without issues - Pt state surgeon aware of hx Degenerative disc disease Hyperlipidemia Hypertension Knee osteoarthritis Getting Synvisc injections q 6 months Oral and injectable steroids cause palpitations Macular degeneration LEFT EYE Surgical History History of arthroscopy LEFT KNEE History of colonoscopy History of open reduction and internal fixation (ORIF) procedure LEFT ARM ( A CHILD) History of tonsillectomy History of total hip arthroplasty LEFT/RIGHT Hx of spinal fusion 2019 dr moss S/P foot surgery S/P lateral meniscal repair left Family History Mother FHx: breast cancer Sister FHx: breast cancer Social History Smoking Status: Never smoker Second Hand Exposure: No; Do You Dip or Chew Tobacco: No; Tobacco Cessation Education Requested by Patient: No Hx Alcohol Use: Yes Alcohol type: wine Hx Substance Use: No Preferred Language: Bur[place]ian Communication Ability: Effective 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 Review of Systems Review of Systems: Constitutional: No fever, sweats or chills Eyes: No diplopia, no worsening or blurred vision ENT: normal hearing, no trouble swallowing Respiratory: No cough, sputum, dyspnea at rest or on exertion Cardiovascular: No chest pain, tightness or palpitations Abdomen: No pain, nausea, vomiting, diarrhea or constipation Musculoskeletal: No joint pain, calf pain, swelling Neurologic: No weakness, + neuropathy of the feet bilaterally, otherwise no numbness/tingling, + uses a cane for ambulation outside the house for back pain/balance problems Psychiatric: No anxiety or depression Skin: No rash or itch Physical Exam Physical Exam: General: awake, alert, no apparent distress, abdominally obese, BMI 36.1 Head: Normocephalic, atraumatic ENT: PERRL, EOMI, no pharyngeal exudate, mucous membranes moist Chest: Clear to auscultation, on 2 L via NC with sats at 95%, no adventitious breath sounds Cardiac: Regular rate and rhythm, no murmur, no JVD, normal peripheral pulses, good capillary refill Abdominal: NABS x 4 quadrants, soft, nondistended, nontender to palpation, no rebound or guarding Back: Pt can sit up with assistance, Dressing is c/d/i, SALVADOR drain with bloody outs Extremities: Normal inspection, no peripheral edema or erythema, calfs nontender to palpation Psych: Normal mood and affect Neuro: AAO x 3, strength intact bilaterally and rated 5/5, no motor deficits, sensation to light touch distally intact, speech is clear, no peripheral sensory deficits Results & Data Results & Data ([facility]) Vital Signs (Past 12 Hours) Vital Signs Temp Pulse Pulse Resp BP Pulse Ox O2 Del Method 12/18/21 15:45 78 15 166/96 H 96 Nasal Cannula 12/18/21 15:30 71 13 155/82 H 96 Nasal Cannula 12/18/21 15:05 36 C L 79 20 172/93 H 95 Room Air 12/18/21 14:55 81 14 178/93 H 99 Oxymask 12/18/21 14:45 77 13 167/93 H 97 Oxymask 12/18/21 15:15 72 12 164/84 H 93 Nasal Cannula 12/18/21 14:39 36.4 C L 86 20 175/84 H 93 Oxymask 12/18/21 10:36 36.8 C 96 H 20 196/104 H 96 Room Air O2 Flow Rate 12/18/21 15:45 2 12/18/21 15:30 2 12/18/21 15:05 12/18/21 14:55 9 12/18/21 14:45 9 12/18/21 15:15 2 12/18/21 14:39 9 12/18/21 10:36 Laboratory Results 12/18/21 12/18/21 10:36 10:25 SARS-CoV-2, RNA, NAAT NEGATIVE Blood Type B Positive Antibody Screen NEGATIVE Crossmatch See Detail
[2021-12-18] MEDS: ceFAZolin 2000MG 2,000 MG/15 ML SYR IV SCH (20:36)
[2021-12-18] MEDS: DOCUSATE SODIUM/SENNA 50/8.6MG TAB PO SCH (20:41)
[2021-12-18] MEDS: METOPROLOL TARTRATE 25 MG TAB PO SCH (20:41)
[2021-12-18] MEDS: PRAVASTATIN SOD 20 MG TAB PO SCH (20:48)
[2021-12-18] MEDS ORDERED: SAW PALMETTO 160 MG PO SCH (21:00)
[2021-12-18] MEDS ORDERED: NON-FORMULARY MEDICATION (Mv-Mn-Fa-Vit K-Lycop-Lute-Zeax [Ocuvite Eye Plus Multi] 200-15-1 PO SCH (21:00)
[2021-12-19] MEDS: POLYETHYLENE (MIRALAX) 17 GM PACK PO SCH ×4 (05:13→23:13)
[2021-12-19] MEDS: ceFAZolin 2000MG 2,000 MG/15 ML SYR IV SCH (05:14)
--- NOTE | 2021-12-19 06:15 | Electrocardiogram Report ---
Test Reason : Blood Pressure : / mmHG Vent. Rate : 073 BPM Atrial Rate : 073 BPM P-R Int : 190 ms QRS Dur : 100 ms QT Int : 366 ms P-R-T Axes : 039 011 079 degrees QTc Int : 403 ms Normal sinus rhythm Nonspecific T wave abnormality Abnormal ECG When compared with ECG of 04-DEC-2021 13:46, Premature ventricular complexes are no longer Present T wave inversion now evident in Lateral leads Confirmed by Preston Arshad ([id number]) on 12/19/2021 6:14:47 AM Referred By: German Moss Confirmed By:Preston Arshad
[2021-12-19 07:41] LABS: Basophils # (auto) 0.01 K/uL (0-0.2); Basophils % (auto) 0.1 %; Hematocrit (blood only) 40.2 % (40.1-51.0); Hemoglobin 13.4 g/dl (14.0-18.0); Immature Granulocytes # (auto) 0.05 K/uL (0.00-0.02); Immature Granulocytes % (auto) 0.5 %; Lymphocytes # (auto) 0.99 K/uL (1.2-3.4); Lymphocytes % (auto) 9.8 %; Mean Corpuscular Hemoglobin 30.4 pg (25.0-34.0); Mean Corpuscular Hgb Conc 33.3 g/dL (32.0-36.0); Mean Corpuscular Volume 91.2 fL (80.0-100.0); Monocytes # (auto) 0.69 K/uL (0.24-0.82); Monocytes % (auto) 6.8 %; Neutrophils # (auto) 8.41 K/uL (1.4-6.5); Neutrophils % (auto) 82.8 %; Platelet Count 189 K/uL (130-400); RDW Coefficient of Variation 12.8 % (11.5-14.5); RDW Standard Deviation 42.8 fL (36.4-46.3); Red Blood Count 4.41 M/uL (4.63-6.08); White Blood Count 10.15 K/ul (4.8-10.8)
[2021-12-19] MEDS: ACETAMINOPHEN 500 MG TAB PO PRN ×2 (07:58→23:14)
[2021-12-19] MEDS: MULTIVITAMIN TAB PO SCH (08:04)
[2021-12-19] MEDS: dexAMETHasone 6 MG in SYRINGE 0 ML IV SCH (08:04)
[2021-12-19] MEDS: METOPROLOL TARTRATE 25 MG TAB PO SCH ×2 (08:04→21:21)
[2021-12-19 08:05] LABS: BUN Creatinine Ratio 23.3 (10-20); Calcium 8.9 mg/dl (8.5-10.1); Creatinine Clr Calc Pharmacy 129.4 ml/min; Est GFR (African American) 105.9 ml/min; Est GFR (Non-African American) 91.4 ml/min; Potassium 4.2 mmol/L (3.5-5.1)
--- NOTE | 2021-12-19 08:26 | Orthopedic Progress Note ---
Date of Service December 19, 2021 Assessment & Plan (1) Spinal stenosis, lumbar region with neurogenic claudication: Plan: We will initiate physical therapy today monitor his SALVADOR operatively discharge home in the next few days. Admission and Anticipated Discharge Date Admission Date: December 18, 2021 Subjective Patient's back pain is controlled leg symptoms markedly improved Physical Exam Physical Exam: Patient is good strength testing peers comfortable. Results & Data ([facility]) Vital Signs (Past 12 Hours) Vital Signs Temp Pulse Pulse Pulse Resp BP Pulse Ox 12/19/21 07:57 81 93 12/19/21 07:40 36.8 C 76 20 163/71 H 12/19/21 03:07 36.7 C 79 18 128/68 93 12/18/21 22:14 36.5 C 84 22 127/73 93 12/18/21 20:34 75 134/73 O2 Del Method 12/19/21 07:57 Room Air 12/19/21 07:40 12/19/21 03:07 Room Air 12/18/21 22:14 Room Air 12/18/21 20:34
[2021-12-19] MEDS ORDERED: NON-FORMULARY MEDICATION (Magnesium Citrate 100 mg Tablet) PO SCH (09:00)
--- NOTE | 2021-12-19 14:12 | Hospitalist Progress Note ---
Date of Service December 19, 2021 Assessment & Plan (1) Spinal stenosis, lumbar region with neurogenic claudication: (2) Degenerative disc disease: (3) Chronic back pain: Plan: Pain management, bowel regimen and DVT ppx per the primary team PT/OT consults, pt uses a cane for ambulation assistance outside his home at baseline, plans to bring walker when he goes Preop Hb 15.7 / hct 47.5 on 12/04/21 Hb today is 13.4. Monitor Can resume ASA once ok with surgeon (4) Hypertension: Plan: Monitor Continue home metoprolol (5) Hyperlipidemia: Plan: - Cont pravastatin 20 mg HS DVT ppx: - teds, scds CODE: Full code Admission and Anticipated Discharge Date Admission Date: December 18, 2021 Subjective Patient seen and examined Reports significant improvement in lower extremity symptoms Reports op site pain is controlled Reports chronic peripheral neuropathy in the limbs Denied all other symptoms on ROS Physical Exam Constitutional: + acute distress; + not appropriately hydrated Eyes: PERRL, conjunctivae normal, anicteric sclerae ENMT: external ear and nose normal, oropharynx normal Respiratory: normal respiratory effort, lungs clear to auscultation Cardiovascular: Rate/Rhythm: regular rate and regular rhythm S1 S2 Gastrointestinal (Abdomen): normal bowel sounds, soft, nontender, no hepatosplenomegaly Musculoskeletal: No pedal edema Good strength Drain in situ at surgical site Neurologic: PERRL, EOMI, accommodation nl, no face palsy, no dysarthria Psychiatric: A+Ox3, euthymic affect Results & Data Results & Data ([facility]) Vital Signs (Past 12 Hours) Vital Signs Temp Pulse Pulse Pulse Resp BP Pulse Ox 12/19/21 07:57 81 93 12/19/21 07:40 36.8 C 76 20 163/71 H 12/19/21 03:07 36.7 C 79 18 128/68 93 O2 Del Method 12/19/21 07:57 Room Air 12/19/21 07:40 12/19/21 03:07 Room Air Laboratory Results Abnormal lab results 12/19/21 12/19/21 Range/Units 06:41 06:41 RBC 4.41 L (4.63-6.08) M/uL Hgb 13.4 L (14.0-18.0) g/dl Neut # (Auto) 8.41 H (1.4-6.5) K/uL Lymph # (Auto) 0.99 L (1.2-3.4) K/uL Immature Gran # (Auto) 0.05 H (0.00-0.02) K/uL BUN/Creatinine Ratio 23.3 H (10-20) Glucose 126 H (70-99(Fasting)) mg/dl
[2021-12-19] MEDS: DOCUSATE SODIUM/SENNA 50/8.6MG TAB PO SCH (21:20)
[2021-12-19] MEDS: PRAVASTATIN SOD 20 MG TAB PO SCH (21:21)
[2021-12-20] MEDS: POLYETHYLENE (MIRALAX) 17 GM PACK PO SCH ×3 (06:09→18:44)
[2021-12-20 06:13] LABS: Hemoglobin 13.1 g/dl (14.0-18.0); Mean Corpuscular Hemoglobin 30.8 pg (25.0-34.0); Mean Corpuscular Hgb Conc 33.6 g/dL (32.0-36.0); Mean Corpuscular Volume 91.5 fL (80.0-100.0); Mean Platelet Volume 9.9 fL (9.4-12.4); Platelet Count 173 K/uL (130-400); RDW Coefficient of Variation 13.1 % (11.5-14.5); RDW Standard Deviation 43.7 fL (36.4-46.3); Red Blood Count 4.26 M/uL (4.63-6.08)
[2021-12-20] MEDS: METOPROLOL TARTRATE 25 MG TAB PO SCH ×2 (08:03→21:30)
[2021-12-20] MEDS: MULTIVITAMIN TAB PO SCH (08:03)
[2021-12-20] MEDS: dexAMETHasone 6 MG in SYRINGE 0 ML IV SCH (08:03)
[2021-12-20] MEDS: ACETAMINOPHEN 500 MG TAB PO PRN ×2 (12:03→21:34)
[2021-12-20] MEDS: PANTOprazole 40 MG TAB PO SCH ×2 (13:54→21:30)
--- NOTE | 2021-12-20 17:22 | Hospitalist Progress Note ---
Date of Service December 20, 2021 Assessment & Plan (1) Spinal stenosis, lumbar region with neurogenic claudication: (2) Degenerative disc disease: (3) Chronic back pain: Plan: Pain management, bowel regimen and DVT ppx per the primary team PT/OT consults, pt uses a cane for ambulation assistance outside his home at baseline, plans to bring walker when he goes Preop Hb 15.7 / hct 47.5 on 12/04/21 Hb today is 13.4. Monitor Can resume ASA 325 mg daily per [facility]. (4) Hypertension: Plan: Monitor Continue home metoprolol (5) Hyperlipidemia: Plan: - Cont pravastatin 20 mg HS DVT ppx: - teds, scds, ASA CODE: Full code Admission and Anticipated Discharge Date Admission Date: December 18, 2021 Subjective Patient seen and examined at bedside as a follow-up of status post lumbar surgery for spinal stenosis, lumbar region with neurogenic claudication. Patient was sitting up in chair, on room air, NAD, denies any acute events overnight. Patient reports pain at incision site under control, reports eating okay and moving bowels okay. Patient denies any fever/headache/chest/chest pain/palpitations/other review of symptoms. Physical Exam Physical Exam: GENERAL: Alert and oriented x3. NAD, on RA. Obese. HEENT: No pallor, no icterus. Pupils equal, round and reactive to light. Oral mucosa moist. NECK: No JVD, no neck masses. HEART: S1 and S2 heard. Regular rate and rhythm. No murmur, no gallop. RESPIRATORY SYSTEM: Normal AP diameter. No accessory muscle use. No wheezing, no crackles. ABDOMEN: Soft, bowel sounds present, nontender, no distention. CENTRAL NERVOUS SYSTEM: No facial droop. Speech is clear. Obeys simple commands. Moves extremities. EXTREMITIES: RLE 1+ and LLE trace edema, no erythema seen. Low back with clean dressing with a sulcus, SALVADOR drain in situ with moderate serosanguineous collection noted. Results & Data Results & Data ([facility]) Vital Signs (Past 12 Hours) Vital Signs Temp Pulse Resp BP Pulse Ox O2 Del Method 12/20/21 15:21 36.4 C L 86 16 158/77 H 94 Room Air 12/20/21 10:00 36.7 C 108 H 16 135/78 95 Room Air 12/20/21 08:33 Room Air 12/20/21 06:04 36.4 C L 70 17 138/78 95 Room Air
[2021-12-20] MEDS: PRAVASTATIN SOD 20 MG TAB PO SCH (21:30)
[2021-12-20] MEDS: DOCUSATE SODIUM/SENNA 50/8.6MG TAB PO SCH (21:34)
[2021-12-21] MEDS: POLYETHYLENE (MIRALAX) 17 GM PACK PO SCH ×4 (00:12→17:32)
[2021-12-21] MEDS: ACETAMINOPHEN 500 MG TAB PO PRN ×2 (06:35→17:28)
[2021-12-21] MEDS: PANTOprazole 40 MG TAB PO SCH (08:06)
[2021-12-21] MEDS: MULTIVITAMIN TAB PO SCH (08:06)
[2021-12-21] MEDS: METOPROLOL TARTRATE 25 MG TAB PO SCH (08:06)
[2021-12-21] MEDS: dexAMETHasone 6 MG in SYRINGE 0 ML IV SCH (08:12)
--- NOTE | 2021-12-21 08:26 | Discharge Summary ---
Date of Service December 21, 2021 Admission HPI Per Admitting Provider This is a 76-year-old male who presents with chronic persistent back and leg pain. Team course of nonoperative care is here for surgical invention. Principal Diagnosis Lumbar spinal stenosis with neurogenic claudication Discharge Data Allergies Allergy/AdvReac Type Severity Reaction Status Date / Time bacitracin Allergy Mild Swelling Verified 12/18/21 10:47 at applicatin site dexamethasone AdvReac Intermediate Palpitation Verified 12/21/21 08:19 s naproxen AdvReac Mild Elevated BP Verified 12/18/21 10:47 prednisone AdvReac Mild Palpitation Verified 12/18/21 10:47 s Consultations 12/18/21 16:07 Consult Hospitalist Routine Procedures Performed Operation Date: 12/18/21 12:15 Actual Procedures p T12-L2 Decompression and Fusion, with Application of IFactor and Vitoss Bone Graft, Interobody Fusion L1-L2, Spinal Cord Monitoring(Not Applicable) - German Moss DO Ordered Studies 12/18/21 [place] lumbar spine 2-3V Routine Hospital Course (1) Spinal stenosis, lumbar region with neurogenic claudication: Patient underwent cervical decompression fusion tolerated this well was taken to orthopedic for postoperative. Postop day 1 is up and ambulating progressed to postop day #2 on postop day #3 his SALVADOR drain decreased probably. + Strength testing. Pain well controlled. Safely discharged home. Discharge orders instructions found in chart for further review. Total Time Total Time Spent Total Time Spent (In Minutes): 20 minutes Discharge Plan Discharge Items Patient Disposition: Home - Self-Care Reason For Visit: Spinal Stenosis Lumbar Reg Neurogenic CLaudication Discharge Diagnosis: Lumbar spinal stenosis with neurogenic claudication Activity: As commented below Non-emergency contact: Primary Care Provider Call non-emergency contact if: you have any medication questions Follow-up/Referrals: Jace Harrington [Primary Care Provider] - Diet: Regular Addtl Attending Provider Instructions: ACTIVITY RECOMMENDATIONS: SELF CARE INSTRUCTIONS AFTER THORACIC/LUMBAR FUSIONS 1. You may walk to your tolerance. It is good exercise for your legs and back. Expect some back and intermittent leg aches and pains. 2. You may perform "counter-top" level activities (make a sandwich, anuj with a project, etc.). 3. No bending or lifting of more than 10 pounds or back twisting of any nature (roll like a log when turning in bed). 4. You may ride in a car for 20-30 minutes at a time. No driving until after your first visit with your doctor. 5. Frequent changes of position and restricting sitting to 30 minutes at a time will help limit the amount of back spasms and stiffness you may experience. 6. You may discontinue the use of ambulatory aids (cane, crutches, etc.) once your strength and confidence allow. 7. You may drafter marine the shower and let water strike your incision when you arrive home at least once daily. Do not take a tub bath, sit in a hot tub or go into a swimming pool until after your first recheck in the office. SPECIAL CARE INSTRUCTIONS: VERY IMPORTANT TO READ AND REVIEW A. Your surgical incision has been closed with a cosmetic suture under the skin that will dissolve in about 6 weeks. In 14 days, you can use a pair of clean scissors and cut the suture that is left outside of the skin at the ends of your incision. 1. The small skin tapes can be removed 7 days after surgery if they have not fallen off by that point. 2. You may keep the wound open to air as much as possible to promote healing after post-op day number 5 unless told otherwise by your doctor. 3. If you think the wound looks like it is becoming infected (redness or worsening drainage) and/or you are experiencing fever, chill or worsening back pain and muscle spasms, contact the office so that we may evaluate you as soon as possible. B. Complications are uncommon, but please contact us if you have any signs or symptoms of: 1. wound infection (fever higher than 102.5 degrees F, redness, separation of wound, drainage, or increasing pain from the incision) 2. blood clots in legs (pain, swelling, redness and warmth in legs) 3. urinary tract infection (fever higher than 102.5 degrees F, burning upon urination or increased frequency of urination) 4. nerve problems (inability to walk on your toes or heels, numbness, loss of bowel or bladder control) 5. any other symptoms that concern you C. Please call the office at if you have any concerns or questions about your operation or recovery. D. No smoking! Smoking drastically decreases the chance of a solid fusion. E. Do not take any anti-inflammatory medications (Indocin, Advil, Motrin, Aspirin, Naprosyn, etc.) as these may inhibit the chance of a solid fusion. Tylenol is okay to take for pain. MANAGING PAIN AFTER SPINAL SURGERY 1. Narcotic medication is intended for short-term use and will be provided for surgical pain. Surgical pain usually lasts for a period of 4-6 weeks. Narcotic medication includes Percocet, Vicodin, Darvocet, Tylenol #3 or Lortab. 2. Longer-term pain is more appropriately treated with non-narcotic medication such as Tylenol ES. 3. Muscle spasm is not appropriately treated with narcotics. Muscle relaxers such as Soma, Flexeril or Skelaxin can be used along with Tylenol ES. 4. Remember that we all live with some "aches and pains". This is not unusual or uncommon after an injury or as we get older. a. Back pain is expected and may include muscle spasms for 4 to 6 weeks after surgery. The pain should gradually improve. If the pain worsens for no apparent reason, please contact the office. b. Intermittent leg pain may also be experienced and should not be concerned about unless it worsens for no apparent reason. If so, please contact the office. 5. We will provide appropriate medication within the normal guidelines of their prescribed use. We will also be very cautious and aware of potential abuse and extended duration of patients' medication needs. a. Pain medications are for your comfort and to assist with sleep and rest so that the tissue can heal. They are not provided in order to return to normal activity and should not be used through the day. To do so or worsening pain at night can result from ongoing tissue damage and development of tolerance to the prescribed medicine. 6. Please allow 2-3 days to process refills. Prescriptions will not be mailed but must be picked up at the office. FOLLOW UP VISIT: Keep your scheduled follow-up appointment. Any questions, please call the office at . Pending Studies at Discharge: No Stand-Alone Forms: [employer], Smoking Cessation Medications and DC Order Prescriptions: New tramadol 50 mg tablet 50 mg PO Q6H PRN (Reason: pain, moderate) Qty: 30 0RF oxycodone 5 mg tablet 5 mg PO Q6H PRN (Reason: pain, severe) Qty: 30 0RF Continued multivitamin Tablet 1 tab PO QAM saw palmetto 160 mg Capsule 160 mg PO BID pravastatin 20 mg Tablet 20 mg PO HS Excedrin Extra Strength 250-250-65 mg Tablet 2 tab PO HS PRN (Reason: Pain) Ocuvite Eye Plus Multi 200-15-150 mcg Tablet 2 tab PO BID lysine 500 mg Capsule 500 mg PO QAM erythromycin 5 mg/gram (0.5 %) ointment 1 ea ophthalmic (eye) QAM magnesium citrate 100 mg Tablet 100 mg PO QAM metoprolol tartrate 25 mg Tablet 25 mg PO BID Discharge Orders: Discharge Order (Routine); Ordered 12/21/21 Ordered By: German Moss Admission Data Admit Date/Time: 12/18/21 14:23 Attending Provider: German Moss Admit Provider: German Moss Primary Care Provider: Jace Harrington Other Providers: Binta Delgado ; Phoebe Jeong
[2021-12-21] MEDS ORDERED: ASPIRIN 325 MG ECTAB PO SCH (09:00)
--- NOTE | 2021-12-21 13:01 | Hospitalist Progress Note ---
Date of Service December 21, 2021 Assessment & Plan (1) Spinal stenosis, lumbar region with neurogenic claudication: (2) Degenerative disc disease: (3) Chronic back pain: Plan: Pain management, bowel regimen and DVT ppx per the primary team PT/OT consults, pt uses a cane for ambulation assistance outside his home at baseline, plans to bring walker when he goes Preop Hb 15.7 / hct 47.5 on 12/04/21 Hb today is 13.1. Monitor On ASA 325 mg daily per [facility] for DVT Px. (4) Hypertension: Plan: Monitor Continue home metoprolol (5) Hyperlipidemia: Plan: - Cont pravastatin 20 mg HS DVT ppx: - teds, scds, ASA CODE: Full code Admission and Anticipated Discharge Date Admission Date: December 18, 2021 Subjective Patient seen and examined at bedside as a follow-up of status post lumbar surgery for spinal stenosis, lumbar region with neurogenic claudication. Patient was lying in bed, on room air, NAD, denies any acute events overnight. Patient reports pain at incision site under control, reports eating okay and moving bowels okay. Patient denies any fever/headache/chest/chest pain/palpitations/other review of symptoms. Physical Exam 2 Physical Exam: GENERAL: Alert and oriented x3. NAD, on RA. Obese. HEENT: No pallor, no icterus. Pupils equal, round and reactive to light. Oral mucosa moist. NECK: No JVD, no neck masses. HEART: S1 and S2 heard. Regular rate and rhythm. No murmur, no gallop. RESPIRATORY SYSTEM: Normal AP diameter. No accessory muscle use. No wheezing, no crackles. ABDOMEN: Soft, bowel sounds present, nontender, no distention. CENTRAL NERVOUS SYSTEM: No facial droop. Speech is clear. Obeys simple commands. Moves extremities. EXTREMITIES: RLE 1+ and LLE trace edema, no erythema seen. Low back with clean dressing withour soakage, SALVADOR drain in situ with minimal serosanguineous collection noted. Results & Data Results & Data ([facility]) Vital Signs (Past 12 Hours) Vital Signs Temp Pulse Resp BP Pulse Ox O2 Del Method 12/21/21 08:24 36.4 C L 56 L 16 156/76 H 95 Room Air
== END 2021-12-21 19:01 | disposition home or self-care (01) | DRG 455 ==
LOC: ASU 10:10 → 3N 14:23 → 3E 12-19 06:36
DX: I10 Essential (primary) hypertension; M48.062 Spinal stenosis, lumbar region with neurogenic claudication; E78.5 Hyperlipidemia, unspecified; Z88.8 Allergy status to other drugs, medicaments and biological substances; Z88.6 Allergy status to analgesic agent; H35.30 Unspecified macular degeneration; N40.0 Benign prostatic hyperplasia without lower urinary tract symptoms; M48.05 Spinal stenosis, thoracolumbar region; Z98.1 Arthrodesis status; Z86.718 Personal history of other venous thrombosis and embolism; Z96.643 Presence of artificial hip joint, bilateral

== ENCOUNTER 2025-01-25 11:37 | Inpatient (IN) ==
--- NOTE | 2025-01-21 12:37 | Anesthesiology Consultation ---
Date of Service January 21, 2025 Assessment & Plan (1) Encounter for pre-operative examination: Chart Review Chart Review: Acceptable Risk for Surgery (pending DOS labs ) and Patient NOT seen in Pre Admission Testing - Check CBC with diff, BMP and coags stat DOS (not done preoperatively) -Infectious Disease screening: Per PAT nursing assessment on 01/20/25. No known infectious disease contacts in past 10 days or current infectious disease symptoms. No recent travel outside the country. Cardio clearance letter 01/22/25= "He can proceed with an intermediate risk from the cardiac standpoint... ASA can be held if necessary 5 days prior to the procedure or whatever the minimal duration necessary is from the surgical standpoint with resumption as soon as permissible as he does have nonobstructive disease on cor CTA..." PCP clearance form 01/20/25= "Patient is "low to moderate risk" for complications during proposed procedure. Patient is cleared for scheduled surgery. Patient has remote history of DVT so extra precautions should be take to prevent DVT post operatively" Patient seen in office by PCP 01/20/25= "seen for preoperative evaluation... EKG shows NSR with rate of 60 and nonspecific T wave changes but no acute findings noted compared to prior EKG from 09/05/23 and this appeared to be similar to the last one. Preop labs will be done today and assuming that they are acceptable, he will be considered medically optimized for surgery on 01/25/25. Last seen by cardiology 11/18/24= "seen for ofllow up on CAD... previous nuclear stress test suggested decreased blood flow to anteroseptal wall/apex. Coronary CT showed total calcium score of 165 and focal eccentric stenosis with mixed plaque in the LAD. FFR CT however did not suggest obstructive disease. Based on this and lack of symptoms- he has preferred to continue with medication management and understands the risks and benefits of this... plan for PET stress test in a year to evaluate LAD blood flow... Proceed with coronary angiography if symptoms develop... " T12-L2 Decompression and fusion 12/18/21= Done under GA with Grade 2 view with Harmon #2. ETT #8.0. History Surgery Operation Date: 01/25/25 12:55 Proposed Procedures p T10 to L2 Fusion, T11 to T12 Decompression, T12-L2 Hardware Removal, Spinal Cord Monitoring - German Moss DO Height/Weight Height: 6 ft 3 in Weight: 131.542 kg Allergies Allergy/AdvReac Type Severity Reaction Status Date / Time dexamethasone Allergy Intermediate Palpitation Verified 01/20/25 13:23 s prednisone Allergy Intermediate Palpitation Verified 01/20/25 13:23 s bacitracin Allergy Mild Swelling Verified 01/20/25 13:23 at application site azithromycin Allergy Unknown Unknown Verified 01/20/25 13:23 piroxicam [From Feldene] Allergy Unknown Unknown Verified 01/20/25 13:23 latex AdvReac Mild Redness of Verified 01/20/25 13:53 Skin naproxen AdvReac Mild Elevated BP Verified 01/20/25 13:23 steroids Allergy Severe Palpitation Uncoded 01/20/25 13:23 s Medications Home Medications Medication Instructions Recorded Confirmed Last Taken [id number] 200 mcg-vit K 15 1 tab PO BID 09/18/18 01/20/25 10/17/22 mcg-lycope 150 rps-rwxzfd-lgjh tablet (Ocuvite Eye Plus Multi) multivitamin 1 tab PO QAM 09/18/18 01/20/25 11/05/22 pravastatin 20 mg tablet 40 mg PO HS 09/18/18 01/20/25 11/05/22 erythromycin 5 mg/gram (0.5 %) eye 1 ea ophthalmic (eye) QA 11/23/21 01/20/25 10/17/22 ointment lysine 500 mg capsule 500 mg PO QAM 11/23/21 01/20/25 11/05/22 metoprolol tartrate 25 mg tablet 25 mg PO TID 11/23/21 01/20/25 11/06/22 07:00 acetaminophen 500 mg tablet 1,000 mg PO QID PRN Pain 01/20/25 01/20/25 Unknown aspirin 81 mg capsule 81 mg PO DAILY 01/20/25 01/20/25 Unknown diphenoxylate-atropine 2.5 1 tab PO DAILY PRN Diarrhea 01/20/25 01/20/25 Unknown mg-0.025 mg tablet (Lomotil) isosorbide mononitrate 30 mg 30 mg PO QPM 01/20/25 01/20/25 Unknown tablet,extended release 24 hr magnesium glycinate 100 mg (as 200 mg PO DAILY 01/20/25 01/20/25 Unknown glycinate) tablet (Mag Glycinate) Past Medical History Medical History (Updated 01/21/25 @ 13:46 by Tasha Abdi PA-C) Blood clotting disorder - No know diagnosis - Followed with heme in the past - Does usually get anticoagulation post op with surgical procedures BPH (benign prostatic hyperplasia) CAD (coronary artery disease) (10/2024) - 10/2024- per cardio records- focal eccentric stenosis with mixed plaque in LAD ; FFR CT however did not suggest obstructive disease ( [facility] in [place]) - medical management recommended - follows with cardio- Dr Post History of anemia HLD (hyperlipidemia) Hx of deep venous thrombosis (2016) - To bilateral LEs following knee arthroscopy in 2016 - Put on Xarelto x one year- had repeat LE imaging one year later- (had calcifications only)- - Xarelto d/c'ed- recommended ASA- patient currently taking - "Chronic DVT of left LE" per PCP records ; no longer follows with heme- denies hx of clotting disorder - Has since had bilateral MACI and lumbar surgery- put on Coumadin post op without issues - Pt state surgeon aware of hx Hypertension Knee osteoarthritis Getting Synvisc injections q 6 months Oral and injectable steroids cause palpitations Macular degeneration left eye Osteoarthritis Spinal stenosis, lumbar region with neurogenic claudication Past Family History Family History Mother FHx: breast cancer Family history of reaction to anesthesia agitated with anesthesia after knee replacement Sister FHx: breast cancer Past Surgical History Surgical History History of arthroplasty of left knee (2016) History of open reduction and internal fixation (ORIF) procedure left arm - as a child History of spinal fusion (12/18/21) 12/18/21 T12-L2 Dr. Moss @ [facility] 2019 - dr. moss Hx of bilateral cataract extraction (2022) Hx of colonoscopy Hx of tonsillectomy Hx of total hip arthroplasty between 9541-7943 Hx of total knee replacement between 0409-3512 (right knee september 2023_ S/P foot surgery 2nd toe right leg- hammer toe Social History Smoking Status: Never smoker Do You Dip or Chew Tobacco: No Hx Alcohol Use: Yes Alcohol type: wine alcohol intake frequency: holidays/special occasions only Hx Substance Use: No substance use type: does not use Testing Laboratory Results 01/20/25= UA: Negative, 1+ Caox Crystal Electrocardiogram Date: 01/20/25 SR at 60bpm Nonspecific T wave abnormality (Per PCP note 01.20.25 "EKG shows NSR with rate of 60 and nonspecific T wave puga ges but no acute findings noted compared to prior EKG from 09/05/23 and this appeared to be similar to the last one") Chest X-Ray Date: 01/20/25 Findings: + NAD Echocardiogram Date: 12/10/24 EF: 60-65% LV Function: normal RWMA: + none Other Findings: + LVH (moderate ) RV mildly dilated LA moderately dilated RVSP/PASP mildly elevated and measures 35-40mmHg
[2025-01-25] MEDS ORDERED: LIDOCAINE 2% 2 ML VIAL/AMP(20MG/ML) INFIL ONE ×2 (11:49)
[2025-01-25] MEDS ORDERED: ROCURONIUM BROMIDE 10 MG/ML 5 ML VIAL IV ONE (11:49)
[2025-01-25] MEDS ORDERED: PROPOFOL IV EMULSION 10 MG/ML 20 ML VIAL IV ONE ×2 (11:49→14:57)
[2025-01-25 12:23] LABS: Hematocrit (blood only) 48.0 % (42.0-52.0); Hemoglobin 15.9 g/dl (14.0-18.0); Immature Granulocytes # (auto) 0.02 K/uL (0.01-0.20); Immature Granulocytes % (auto) 0.3 %; Mean Corpuscular Hemoglobin 30.5 pg (25.0-34.0); Mean Corpuscular Volume 92.0 fL (80.0-100.0); Platelet Count 190 K/uL (130-400); RDW Standard Deviation 44.6 fL (36.4-46.3); Red Blood Count 5.22 M/uL (4.70-6.10); White Blood Count 6.35 K/ul (4.8-10.8)
[2025-01-25] MEDS ORDERED: ATROPINE SULFATE 0.1 MG/ML 10ML SYR IV PRN (12:25)
[2025-01-25] MEDS ORDERED: HYDROmorphone INJ 2 MG/ML SYR/VIAL IV PRN (12:25)
[2025-01-25 12:31] LABS: Anion Gap 6.0 (3-11); Blood Urea Nitrogen 14.0 mg/dl (6-23); Calcium 10.4 mg/dl (8.6-10.3); Carbon Dioxide 30.0 mmol/L (21-32); Chloride 105.0 mmol/L (98-107); Creatinine Clr Calc Pharmacy 127.1 ml/min; Glucose 117.0 mg/dl (70-99(Fasting)); Potassium 4.0 mmol/L (3.5-5.1); Sodium 141.0 mmol/L (136-145)
[2025-01-25] MEDS: LR 60ML/HR IV SCH (12:32)
[2025-01-25] MEDS: ACETAMINOPHEN 500 MG TAB PO SCH (12:32)
[2025-01-25] MEDS: GABAPENTIN 300 MG CAP PO SCH (12:33)
[2025-01-25] MEDS: LR 15ML/HR IV SCH (12:33)
[2025-01-25] MEDS: CeleBREX 200 MG CAP PO SCH (12:33)
--- NOTE | 2025-01-25 12:35 | History & Physical Bridge Note ---
Date of Service January 25, 2025 History & Physical Bridge Note I have examined the patient, reviewed the History & Physical and in the interval since the performance of the History & Physical I have noted the following changes of clinical significance: no changes noted
--- NOTE | 2025-01-25 12:36 | History & Physical Report ---
Date of Service January 25, 2025 Assessment & Plan (1) Myelopathy concurrent with and due to spinal stenosis of thoracic region: Plan: T10-L2 fusion, T11-T12 decompression, hardware removal T12-L2 History of Present Illness Chief Complaint: Bilateral leg weakness Primary Care Provider: Jace Harrington This is a 79-year-old male well-known to me the presents with marked decline in status. He has severe thoracic spinal stenosis with myelopathy. Allergies Allergy/AdvReac Type Severity Reaction Status Date / Time dexamethasone Allergy Intermediate Palpitation Verified 01/25/25 12:12 s prednisone Allergy Intermediate Palpitation Verified 01/25/25 12:12 s bacitracin Allergy Mild Swelling Verified 01/25/25 12:12 at application site azithromycin Allergy Unknown Unknown Verified 01/25/25 12:12 piroxicam [From Feldene] Allergy Unknown Unknown Verified 01/25/25 12:12 latex AdvReac Mild Redness of Verified 01/25/25 12:12 Skin naproxen AdvReac Mild Elevated BP Verified 01/25/25 12:12 steroids Allergy Severe Palpitation Uncoded 01/25/25 12:12 s Home Medications Medication Instructions Recorded Confirmed Type llyuzyje-ubz-YJ 200 mcg-vit K 15 1 tab PO BID 09/18/18 01/25/25 History mcg-lycope 150 zlw-xfazbe-hkfj tablet (Ocuvite Eye Plus Multi) multivitamin 1 tab PO QAM 09/18/18 01/25/25 History pravastatin 20 mg tablet 40 mg PO HS 09/18/18 01/25/25 History erythromycin 5 mg/gram (0.5 %) eye 1 ea ophthalmic (eye) QA 11/23/21 01/25/25 History ointment lysine 500 mg capsule 500 mg PO QAM 11/23/21 01/25/25 History metoprolol tartrate 25 mg tablet 25 mg PO TID 11/23/21 01/25/25 History acetaminophen 500 mg tablet 1,000 mg PO QID PRN Pain 01/20/25 01/25/25 History aspirin 81 mg capsule 81 mg PO DAILY 01/20/25 01/25/25 History diphenoxylate-atropine 2.5 1 tab PO DAILY PRN Diarrhea 01/20/25 01/25/25 History mg-0.025 mg tablet (Lomotil) isosorbide mononitrate 30 mg 30 mg PO QPM 01/20/25 01/25/25 History tablet,extended release 24 hr magnesium glycinate 100 mg (as 200 mg PO DAILY 01/20/25 01/25/25 History glycinate) tablet (Mag Glycinate) losartan 100 mg tablet 50 mg PO BID 01/25/25 01/25/25 History Past Med/Surg History Problem List (Updated 01/25/25 @ 12:36 by German Moss DO) Myelopathy concurrent with and due to spinal stenosis of thoracic region Blood clotting disorder No known diagnosis; [facility] Dr Rich, [facility] - States usually is given anticoagulation post op Spinal stenosis, lumbar region with neurogenic claudication Encounter for pre-operative examination Degenerative disc disease (Chronic) Osteoarthritis (Chronic) Chronic back pain (Chronic) History of open reduction and internal fixation (ORIF) procedure (Chronic) LEFT ARM ( A CHILD) Macular degeneration (Chronic) LEFT EYE History of tonsillectomy (Chronic) History of total hip arthroplasty (Chronic) LEFT/RIGHT Deep vein thrombosis (Chronic) - To bilateral LEs following knee arthroscopy in 2017 - Put on Xarelto x one year- had repeat LE imaging one year later- (had calcifications only)- - Xarelto d/c'ed- recommended ASA- patient currently taking - "Chronic DVT of left LE" per PCP records ; no longer follows with heme- denies hx of clotting disorder - Has since had bilateral MACI and lumbar surgery- put on Coumadin post op without issues - Pt state surgeon aware of hx History of arthroscopy (Chronic) LEFT KNEE History of colonoscopy (Chronic) Hyperlipidemia (Chronic) Medical History (Updated 01/25/25 @ 12:36 by German Moss DO) BPH (benign prostatic hyperplasia) Hypertension History of anemia Blood clotting disorder - No know diagnosis - Followed with heme in the past - Does usually get anticoagulation post op with surgical procedures Macular degeneration left eye Hx of deep venous thrombosis (2017) - To bilateral LEs following knee arthroscopy in 2017 - Put on Xarelto x one year- had repeat LE imaging one year later- (had calcifications only)- - Xarelto d/c'ed- recommended ASA- patient currently taking - "Chronic DVT of left LE" per PCP records ; no longer follows with heme- denies hx of clotting disorder - Has since had bilateral MACI and lumbar surgery- put on Coumadin post op without issues - Pt state surgeon aware of hx CAD (coronary artery disease) (10/2024) - 10/2024- per cardio records- focal eccentric stenosis with mixed plaque in LAD ; FFR CT however did not suggest obstructive disease ( [facility] in [place]) - medical management recommended - follows with cardio- Dr Sincere MOLINA (hyperlipidemia) Osteoarthritis Spinal stenosis, lumbar region with neurogenic claudication Knee osteoarthritis Getting Synvisc injections q 6 months Oral and injectable steroids cause palpitations Surgical History Hx of colonoscopy History of arthroplasty of left knee (2016) History of open reduction and internal fixation (ORIF) procedure left arm - as a child Hx of total knee replacement between 0634-6700 (right knee september 2023_ Hx of total hip arthroplasty between 2646-6859 Hx of tonsillectomy Hx of bilateral cataract extraction (2022) History of spinal fusion (12/18/21) 12/18/21 T12-L2 Dr. Moss @ [facility] 2019 - dr. moss S/P foot surgery 2nd toe right leg- hammer toe Family History Mother FHx: breast cancer Family history of reaction to anesthesia agitated with anesthesia after knee replacement Sister FHx: breast cancer Social History Smoking Status: Never smoker Second Hand Exposure: No; Do You Dip or Chew Tobacco: No; Tobacco Cessation Education Requested by Patient: No Hx Alcohol Use: Yes Alcohol type: wine Hx Substance Use: No Preferred Language: Yakut Communication Ability: Effective Rn Advice Required: No Beliefs That Will Affect Care: None marital status: Current Living Situation: Spouse Other Information That Helps Us Care for You: No Feels Safe at Home: Yes Safety Concerns: Feels Safe At This Time Assistive Devices: Cane, Glasses and Walker Physical Exam Physical Exam: Patient is alert and oriented Heart regular rhythm Lungs clear Results & Data Results & Data Vital Signs (Past 12 Hours) Vital Signs Temp Pulse Resp BP Pulse Ox O2 Del Method 01/25/25 12:18 36.5 C 68 20 166/86 H 96 Room Air
[2025-01-25 12:44] LABS: INR 1.0 (0.9-1.1); Partial Thromboplastin Time 25 Seconds (21-31); Prothrombin Time 10.8 Seconds (9.0-12.0)
[2025-01-25] MEDS: ceFAZolin 3000MG 3,000 MG/72.5 ML BAG IV SCH ×2 (13:07→21:03)
[2025-01-25] MEDS ORDERED: KETAMINE HCL 10MG/ML SYR ONE (13:23)
[2025-01-25] MEDS ORDERED: HYDROmorphone INJ 2 MG/ML SYR/VIAL ONE (13:23)
[2025-01-25] MEDS ORDERED: ARTIFICIAL TEARS OP OINT 3.5 GM TUBE ONE (13:25)
[2025-01-25] MEDS ORDERED: ONDANSETRON INJ 2 MG/ML 2 ML VIAL ONE ×2 (13:25→14:59)
[2025-01-25] MEDS: BUPIVACAINE/EPINEPHRINE 0.25% 1:200,000 30 ML VIAL ONE (13:31)
[2025-01-25] MEDS: ceFAZolin 330 MG/ML 1 GM VIAL ONE (14:39)
[2025-01-25] MEDS: FLOSEAL HEMOSTATIC MATRIX 10ML TOP ONE (14:47)
[2025-01-25] MEDS ORDERED: SUGAMMADEX SODIUM 200 MG/2 ML VIAL IV ONE (14:52)
--- NOTE | 2025-01-25 14:55 | Operative Report ---
Post Operative Report Pre & Post Diagnosis Operation Date: 01/25/25 12:55 Pre-Op Diagnosis: Myelopathy concurrent with and due to spinal stenosis of thoracic region Post-Op Diagnosis: Myelopathy concurrent with and due to spinal stenosis of thoracic region I identified the patient and participated in the time-out.: Yes Procedure Operation Date: 01/25/25 12:55 Actual Procedures #1 removal of posterior pedicle screws and connectors T12 and L1. #2 exploration of fusion T12-L2. #3 decompression with bilateral medial facetectomies T10-T11 T11-T12. #4 posterior spinal fusion T10-L1. #5 placed posterior instrumentation T10-L2 with connectors using medic Creo. #6 placement of Proteus combined with Koros in the posterior lateral gutters. #7 application of versa wrap over the exposed dura. Surgeon German Moss, DO [employer] Service Technician Angy Lopez Estimated Blood Loss 50 Findings See Below Patient is 6 foot 3 weighing over 131 kg with a BMI in excess of 36. Patient's body mass did contribute to significant technical difficulty with positioning exposing her procedure itself and at least 50% increased operative time. Specimens None Indications This is a 79-year-old male who presents to my office with gross myelopathy. MRI demonstrates severe cord compression at 11 T12. Subsequently he is here for urg ent decompression fusion. Description of Procedure Patient was met with identified informed consent obtained. Patient was then taken to the operative suite underwent intubation patient placed in a prone position on chest padded bolsters. All bony prominences well-padded eyes inspected to ensure no external pressure placed upon them. This point the thoracolumbar spine was prepped and draped in normal sterile fashion. Sharp dissection with the assistance of Bovie cautery from down to and exposing the lamina transverse processes of T10-T11 and instrumentation at T12-L1 and the connector at L2-L3. I then proceeded remove the connectors and pedicle screws including the previous jesus. I then performed a laminectomies with bilateral medial facetectomies T11 and T10. Severe canal encroachment was noted. Pedicle screws were then placed in T10-T11 T12-L1 bilaterally with assistance of fluoroscopy and appropriate size rods contoured and placed. The transverse processes of [id number] and L1 were then burred to subcortical and bone. Proteus combined with Koros was placed in the posterior gutters. Versa wrap placed of exposed dura. 15 round SALVADOR drain inserted. The incision was then closed with 1 Vicryl the fascia 2-0 Vicryl subcutaneously and 4-0 Monocryl for final skin closure. Steri-Strips sterile dressing placed. Patient waken taken PACU stable condition. Please note Angy Lopez was present out the entire procedure and on the patient positioning complex portion of the surgery and final skin closure. I attest to the content of the Intraoperative Record and any orders documented therein. Any exceptions are noted below.
--- NOTE | 2025-01-25 15:06 | Fluoroscopy Report ---
FL thoracic spine 2V CLINICAL HISTORY: T10-L2 FUSION, T11-T12 DECOMPRESSION COMPARISON STUDY: None FLUOROSCOPY TIME: 19 seconds FLUOROSCOPY IMAGES: 3 EXPOSURE DOSE: 12 mGy FINDINGS: Fluoroscopy was provided for lower thoracic to upper lumbar spinal fusion. IMPRESSION: Intraoperative fluoroscopy. ACT 112: Negative or not required by law. Electronically signed by: Cody Crum M.D. 01/25/2025 3:05 PM
--- NOTE | 2025-01-25 15:57 | Anesthesiology Progress Note ---
Date of Service January 25, 2025 Anesthesia Post Procedure Vital Signs Vital Signs: Temp Pulse Pulse Resp BP Pulse Ox O2 Del Method 01/25/25 15:50 36.5 C 74 15 169/76 H 95 Room Air 01/25/25 15:40 80 14 163/85 H 97 Oxymask 01/25/25 15:30 80 14 166/79 H 96 Oxymask 01/25/25 15:23 36.0 C L 85 12 171/81 H 93 Oxymask 01/25/25 12:18 36.5 C 68 20 166/86 H 96 Room Air O2 Flow Rate 01/25/25 15:50 0 01/25/25 15:40 3 01/25/25 15:30 6 01/25/25 15:23 6 01/25/25 12:18 Pain Intensity Left Back: Pain Intensity: 2 Transfer of Care Handoff Completed per policy Notes Mental Status: alert / awake / arousable Patient Amnestic to Procedure: Yes Nausea / Vomiting: adequately controlled Pain: adequately controlled Airway Patency, RR, SpO2: stable & adequate BP & HR: stable & adequate Hydration State: stable & adequate Anesthetic Complications: no major complications apparent and Pt Satisfied with anesthetic care
[2025-01-25] MEDS ORDERED: DIPHENOXYLATE/ATROPINE 2.5/0.025MG TAB PO PRN (16:27)
[2025-01-25] MEDS ORDERED: ALUMINUM/MAGNESIUM SUSP 30 ML UDC PO PRN (16:27)
[2025-01-25] MEDS ORDERED: SOD PHOSPHATE/SOD BIPHOSPHATE ENEMA 132 ML BTL PR PRN (16:27)
[2025-01-25] MEDS ORDERED: METOCLOPRAMIDE HCL INJ 5 MG/ML 2 ML VIAL IV PRN (16:27)
[2025-01-25] MEDS ORDERED: LORazepam 0.5 MG TAB PO PRN (16:27)
[2025-01-25] MEDS ORDERED: ACETAMINOPHEN 1,000 MG/100 ML VIAL IV PRN (16:27)
[2025-01-25] MEDS ORDERED: DO NOT ADMINISTER FLU VACCINE PRN (16:27)
[2025-01-25] MEDS ORDERED: HYDROmorphone INJ 0.5 MG/0.5 ML SYR IV PRN (16:27)
[2025-01-25] MEDS ORDERED: MAGNESIUM HYDROXIDE SUSP 30 ML UDC PO PRN (16:27)
[2025-01-25] MEDS ORDERED: FAMOTIDINE 20 MG TAB PO PRN (16:27)
[2025-01-25] MEDS ORDERED: DO NOT ADMINISTER PNEUMOCOCCAL VACCINE PRN (16:27)
[2025-01-25] MEDS ORDERED: PROMETHAZINE 12.5 MG/50.5 ML BAG IV PRN (16:27)
[2025-01-25] MEDS ORDERED: diphenhydrAMINE Capsule 25 MG CAP PO PRN (16:27)
[2025-01-25] MEDS ORDERED: ONDANSETRON INJ 2 MG/ML 2 ML VIAL IV PRN (16:27)
[2025-01-25] MEDS ORDERED: NALOXONE HCL 0.4 MG/1 ML VIAL/CARP IV PRN (16:27)
[2025-01-25] MEDS ORDERED: HYDROmorphone INJ 1 MG/ML SYRINGE IV PRN (16:27)
[2025-01-25] MEDS: COUGH DROP (SUGAR FREE) LOZ 24 LOZ/1 BOX BUCCAL ONE (16:40)
[2025-01-25] MEDS: LACTATED RINGER'S 1,000 ML IV SCH (17:13)
--- NOTE | 2025-01-25 17:18 | Hospitalist Consultation ---
Date of Consultation January 25, 2025 Assessment & Plan (1) Myelopathy concurrent with and due to spinal stenosis of thoracic region: (2) HLD (hyperlipidemia): (3) CAD (coronary artery disease): (4) Hx of deep venous thrombosis: Plan This is a 79 y/o male with HTN, dyslipidemia, BPH, DVT w/ hx of being on Xarelto but subsequently discontinued, DDD, OA, and macular degeneration who underwent T10 to L2 decompression fusion today by Dr. Moss and for whom we have been con sulted to assist with post-operative medical management. Currently, patient has no specific complaints. POD #0 - T10-L2 decompression fusion - Pain control, activity, PT/OT, bowel regimen per primary team - Agree with resuming aspirin tomorrow in view of prior DVT in 2017 s/p meniscus tear - CBC in the AM to monitor for acute blood loss anemia - EBL 50 ml #Hypertension - Continue metoprolol as taken outpatient #Dyslipidemia - Continue statin #CAD - Chronic, stable - continue outpatient regimen including aspirin, statin, beta- adriana, and isosorbide Pt seen and reviewed with collaborating physician, Dr. Eric. Plan of care discussed and as outlined above. Thank you for this consultation. We will continue to follow the patient with you. A member of the [facility] team is available 03/12 via [employer]. Please don't hesitate to reach out with questions. I spent a total of 63 minutes coordinating, documenting, and providing care for this patient excluding time spent in the performance of separately billed services or time spent by another provider/QHP. Zofia Gordillo PA-C Supervising Physician Co-Signing Physician Notes Attending addendum: The patient was seen and examined in medical floor in presence of the He is a status post T10-L2 fusion, T11-T12 decompression, T12-L2 hardware removal on 01/25/2025 He has been complaining of minimal pain at the back and denies any other significant symptoms On examination Lying in bed without any acute distress Remains hemodynamically stable Chest was clear to auscultate bilaterally HeartS1, S2 regular Abdomenbenign Extremitiesno edema CNSalert awake and oriented x 3. Moving all limbs History of labs and imaging studies reviewed Remains medically stable following lumbar procedure as above His other significant medical conditions remained stable with current medications Agree with assessment and plan as outlined above by Zhanna Gordillo PA-C and take the full responsibility in the hospital Dr Norbert Eric History of Present Illness Reason for Consultation: Post-operative medical management Requesting Physician: Dr. German Moss Attending Physician: German Moss, DO History of Present Illness This is a 79 y/o male with HTN, dyslipidemia, BPH, DVT w/ hx of being on Xarelto but subsequently discontinued, DDD, OA, and macular degeneration who underwent T10 to L2 decompression fusion today by Dr. Moss and for whom we have been consulted to assist with post-operative medical management. Pt reports that this is his third back surgery. Currently his pain is well-controlled but also admits that he hasn't been up out of bed yet. He denies significant nausea but reports decreased appetite so did not eat much for dinner. He denies chest pain, palpitations, dyspnea, , dizziness. He had a sore throat initially post-op but this has improved with lozenges. He has chronic numbness in feet related to neuropathy, and this is unchanged from his usual. No tingling or LE weakness noted. Allergies Allergy/AdvReac Type Severity Reaction Status Date / Time dexamethasone Allergy Intermediate Palpitation Verified 01/25/25 12:12 s prednisone Allergy Intermediate Palpitation Verified 01/25/25 12:12 s bacitracin Allergy Mild Swelling Verified 01/25/25 12:12 at application site azithromycin Allergy Unknown Unknown Verified 01/25/25 12:12 piroxicam [From Feldene] Allergy Unknown Unknown Verified 01/25/25 12:12 latex AdvReac Mild Redness of Verified 01/25/25 12:12 Skin naproxen AdvReac Mild Elevated BP Verified 01/25/25 12:12 steroids Allergy Severe Palpitation Uncoded 01/25/25 12:12 s Home Medications Medication Instructions Recorded Confirmed Type [id number] 200 mcg-vit K 15 1 tab PO BID 09/18/18 01/25/25 History mcg-lycope 150 xia-frldqb-ohpk tablet (Ocuvite Eye Plus Multi) multivitamin 1 tab PO QAM 09/18/18 01/25/25 History pravastatin 20 mg tablet 40 mg PO HS 09/18/18 01/25/25 History erythromycin 5 mg/gram (0.5 %) eye 1 ea ophthalmic (eye) QAM 11/23/21 01/25/25 History ointment lysine 500 mg capsule 500 mg PO QAM 11/23/21 01/25/25 History metoprolol tartrate 25 mg tablet 25 mg PO TID 11/23/21 01/25/25 History acetaminophen 500 mg tablet 1,000 mg PO QID PRN Pain 01/20/25 01/25/25 History aspirin 81 mg capsule 81 mg PO DAILY 01/20/25 01/25/25 History diphenoxylate-atropine 2.5 1 tab PO DAILY PRN Diarrhea 01/20/25 01/25/25 History mg-0.025 mg tablet (Lomotil) isosorbide mononitrate 30 mg 30 mg PO QPM 01/20/25 01/25/25 History tablet,extended release 24 hr magnesium glycinate 100 mg (as 200 mg PO DAILY 01/20/25 01/25/25 History glycinate) tablet (Mag Glycinate) losartan 100 mg tablet 50 mg PO BID 01/25/25 01/25/25 History Patient History Medical History (Updated 01/25/25 @ 17:30 by Renetta Gordillo PA-C) BPH (benign prostatic hyperplasia) Hypertension History of anemia Blood clotting disorder - No know diagnosis - Followed with heme in the past - Does usually get anticoagulation post op with surgical procedures Macular degeneration left eye Hx of deep venous thrombosis (2016) - To bilateral LEs following knee arthroscopy in 2017 - Put on Xarelto x one year- had repeat LE imaging one year later- (had calcifications only)- - Xarelto d/c'ed- recommended ASA- patient currently taking - "Chronic DVT of left LE" per PCP records ; no longer follows with heme- denies hx of clotting disorder - Has since had bilateral MACI and lumbar surgery- put on Coumadin post op without issues - Pt state surgeon aware of hx CAD (coronary artery disease) (10/2024) - 10/2024- per cardio records- focal eccentric stenosis with mixed plaque in LAD ; FFR CT however did not suggest obstructive disease ( [facility] in [place]) - medical management recommended - follows with cardio- Dr Sincere MOLINA (hyperlipidemia) Osteoarthritis Spinal stenosis, lumbar region with neurogenic claudication Knee osteoarthritis Getting Synvisc injections q 6 months Oral and injectable steroids cause palpitations Surgical History Hx of colonoscopy History of arthroplasty of left knee (2016) History of open reduction and internal fixation (ORIF) procedure left arm - as a child Hx of total knee replacement between 7495-5360 (right knee september 2023_ Hx of total hip arthroplasty between 6820-0182 Hx of tonsillectomy Hx of bilateral cataract extraction (2022) History of spinal fusion (12/18/21) 12/18/21 T12-L2 Dr. Moss @ [facility] 2019 - dr. moss S/P foot surgery 2nd toe right leg- hammer toe Family History Mother FHx: breast cancer Family history of reaction to anesthesia agitated with anesthesia after knee replacement Sister FHx: breast cancer Social History Smoking Status: Never smoker Second Hand Exposure: No; Do You Dip or Chew Tobacco: No; Tobacco Cessation Education Requested by Patient: No Hx Alcohol Use: Yes Alcohol type: wine Hx Substance Use: No Preferred Language: Pry[place]in[place] Communication Ability: Effective Medical Educator Required: No Beliefs That Will Affect Care: None marital status: Current Living Situation: Spouse Other Information That Helps Us Care for You: No Feels Safe at Home: Yes Safety Concerns: Feels Safe At This Time Assistive Devices: Cane, Glasses and Walker Review of Systems Review of Systems: All systems reviewed & are unremarkable except as noted in Subjective Physical Exam Physical Exam: General: awake, alert, NAD HEENT: no scleral icterus, moist oral mucosa Neck: supple, trachea midline Heart: RRR Lungs: CTA bilaterally, no W/R/R Abdomen: soft, NT, +BS Extremities: distal pulses intact and equal, no pedal edema Neurologic: moving all extremities, no confusion or dysarthria, Ox3 Skin: warm, dry, no jaundice SALVADOR drain in place with serosanguineous drainage Results & Data Results & Data Vital Signs (Past 12 Hours) Vital Signs Temp Pulse Pulse Resp BP Pulse Ox O2 Del Method 01/25/25 17:08 36.3 C L 76 16 148/64 H 94 Room Air 01/25/25 16:42 36.4 C L 63 14 144/81 H 96 Room Air 01/25/25 16:05 36.4 C L 64 18 159/77 H 96 Room Air 01/25/25 15:50 36.5 C 74 15 169/76 H 95 Room Air 01/25/25 15:40 80 14 163/85 H 97 Oxymask 01/25/25 15:30 80 14 166/79 H 96 Oxymask 01/25/25 15:23 36.0 C L 85 12 171/81 H 93 Oxymask 01/25/25 12:18 36.5 C 68 20 166/86 H 96 Room Air O2 Flow Rate 01/25/25 17:08 01/25/25 16:42 01/25/25 16:05 01/25/25 15:50 0 01/25/25 15:40 3 01/25/25 15:30 6 01/25/25 15:23 6 01/25/25 12:18 Laboratory Results 01/25/25 11:49 WBC 6.35 RBC 5.22 Hgb 15.9 Hct 48.0 MCV 92.0 MCH 30.5 MCHC 33.1 RDW Std Deviation 44.6 RDW Coeff of Thao 13.2 Plt Count 190 MPV 10.1 Immature Gran % (Auto) 0.3 Neut % (Auto) 61.9 Lymph % (Auto) 26.3 [place] % (Auto) 9.0 Eos % (Auto) 1.9 Baso % (Auto) 0.6 Neut # (Auto) 3.93 Lymph # (Auto) 1.67 [place] # (Auto) 0.57 Eos # (Auto) 0.12 Baso # (Auto) 0.04 Immature Gran # (Auto) 0.02 PT 10.8 INR 1.0 APTT 25 PTT Ratio 0.9 Sodium 141 Potassium 4.0 Chloride 105 Carbon Dioxide 30 Anion Gap 6 BUN 14 Creatinine 0.71 Est Cr Clr Drug Dosing 127.1 eGFR 94.50 BUN/Creatinine Ratio 19.7 Glucose 117 H Calcium 10.4 H Blood Type B Positive Antibody Screen NEGATIVE Medications Administered Acetaminophen (Acetaminophen 500 Mg Tab) 1,000 mg PO PREOP ROSALIA Stop: 01/25/25 18:00 Last Admin: 01/25/25 12:32 Dose: Not Given Documented By: DEON Celecoxib (Celebrex 200 Mg Cap) 200 mg PO PREOP ROSALIA Stop: 01/25/25 18:00 Last Admin: 01/25/25 12:33 Dose: 200 mg Documented By: DEON Gabapentin (Gabapentin 300 Mg Cap) 300 mg PO PREOP ROSALIA Stop: 01/25/25 18:00 Last Admin: 01/25/25 12:33 Dose: 300 mg Documented By: DEON Lactated Ringer's (Lr) 1,000 mls @ 15 mls/hr IV .Q24H ROSALIA Stop: 01/26/25 05:59 Last Infusion: 01/25/25 13:05 Dose: Infused Documented By: Admin: 01/25/25 12:33 Dose: 15 mls/hr Documented By: DEON Lactated Ringer's (Lr) 1,000 mls @ 60 mls/hr IV .[id number] ROSALIA Stop: 01/25/25 22:39 Last Admin: 01/25/25 12:32 Dose: Not Given Documented By: DEON Cefazolin Sodium (Ancef 3000mg) 3,000 mg in 72.5 mls @ 130 mls/hr IV PREOP ROSALIA; Protocol Stop: 01/25/25 18:00 Last Infusion: 01/25/25 16:15 Dose: Infused Documented By: Admin: 01/25/25 13:07 Dose: 130 mls/hr Documented By: [id number] Discontinued Medications Bupivacaine HCl/Epinephrine Bitart (Bupivacaine/Epinephrine 0.25% 1:200,000 30 Ml Vial) Confirm Administered Dose 30 ml .ROUTE .STK-MED ONE Stop: 01/25/25 13:01 Last Admin: 01/25/25 13:31 Dose: 30 ml Documented By: GMB Cefazolin Sodium (Cefazolin 330 Mg/Ml 1 Gm Vial) Confirm Administered Dose 2,970 mg .ROUTE .STK-MED ONE Stop: 01/25/25 13:01 Last Admin: 01/25/25 14:39 Dose: 2,970 mg Documented By: GMB Lactated Ringer's (Lr) 1,000 mls @ 75 mls/hr IV .[id number] [facility] Stop: 01/26/25 08:00 Last Admin: 01/25/25 17:13 Dose: Not Given Documented By: MYA Menthol (Cough Drop (Sugar Free) Demian 24 Demian/1 Box) Confirm Administered Dose 24 demian [place]AL .STK-MED ONE Stop: 01/25/25 16:34 Last Admin: 01/25/25 16:40 Dose: 24 demian Documented By: MYA Miscellaneous ( Floseal Hemostatic Matrix 10ml) 20 ml TOP ONCE ONE Stop: 01/25/25 13:52 Last Admin: 01/25/25 14:47 Dose: Not Given Documented By: KATHY (2) HLD (hyperlipidemia) Hyperlipidemia type: unspecified Qualified Code(s): E78.5 - Hyperlipidemia, unspecified (3) CAD (coronary artery disease) Associated angina: unspecified whether angina present Coronary Disease- Associated Artery/Lesion type: [place] artery [place] vs. transplanted heart: [place] heart Qualified Code(s): I25.10 - Atherosclerotic heart disease of [place] coronary artery without angina pectoris
[2025-01-25] MEDS ORDERED: Nursing to Pharmacy Communication SCH (18:45)
[2025-01-25] MEDS ORDERED: ISOSORBIDE MONO EXTENDED REL 30 MG TABCR PO SCH (21:00)
[2025-01-25] MEDS: DOCUSATE SODIUM/SENNA 50/8.6MG TAB PO SCH (21:03)
[2025-01-25] MEDS: METOPROLOL TARTRATE 25 MG TAB PO SCH (21:04)
[2025-01-25] MEDS: LOSARTAN POTASSIUM 50 MG TAB PO SCH (21:04)
[2025-01-25] MEDS: PRAVASTATIN SOD 40 MG TAB PO SCH (21:05)
[2025-01-26] MEDS: POLYETHYLENE (MIRALAX) 17 GM PACK PO SCH (05:49)
[2025-01-26 06:37] LABS: Hematocrit (blood only) 43.4 % (42.0-52.0); Hemoglobin 15.0 g/dl (14.0-18.0); Immature Granulocytes # (auto) 0.03 K/uL (0.01-0.20); Immature Granulocytes % (auto) 0.4 %; Mean Corpuscular Hemoglobin 31.8 pg (25.0-34.0); Mean Corpuscular Volume 92.1 fL (80.0-100.0); Platelet Count 157 K/uL (130-400); RDW Standard Deviation 44.4 fL (36.4-46.3); Red Blood Count 4.71 M/uL (4.70-6.10); White Blood Count 6.75 K/ul (4.8-10.8)
[2025-01-26 06:53] LABS: Anion Gap 7.0 (3-11); Blood Urea Nitrogen 14.0 mg/dl (6-23); Calcium 9.3 mg/dl (8.6-10.3); Carbon Dioxide 28.0 mmol/L (21-32); Chloride 104.0 mmol/L (98-107); Creatinine Clr Calc Pharmacy 122.0 ml/min; Glucose 124.0 mg/dl (70-99(Fasting)); Potassium 4.1 mmol/L (3.5-5.1); Sodium 139.0 mmol/L (136-145)
--- NOTE | 2025-01-26 08:09 | Orthopedic Progress Note ---
Date of Service January 26, 2025 Assessment & Plan (1) Myelopathy concurrent with and due to spinal stenosis of thoracic region: Plan: At this time we will initiate physical therapy monitor his SALVADOR output determine disposition in the next few days. Admission and Anticipated Discharge Date Admission Date: January 25, 2025 Subjective Patient's back pain is controlled. He was up and ambulating last evening. He feels his symptoms are improving. Physical Exam Physical Exam: Patient is currently bed. Discussed active testing. Results & Data Vital Signs (Past 12 Hours) Vital Signs Temp Pulse Resp BP BP Pulse Ox O2 Del Method 01/26/25 07:12 37.0 C 74 17 144/73 H 94 Room Air 01/26/25 04:12 37.0 C 73 18 159/77 H 96 Room Air 01/26/25 00:12 36.3 C L 71 18 155/79 H 96 Room Air 01/25/25 20:10 36.4 C L 81 157/67 H 95 Room Air Queries Orthopedic Spine Obesity: Yes
[2025-01-26] MEDS: ERYTHROMYCIN OP OINT 5 MG/GM 3.5 GM TUBE OP SCH (08:33)
[2025-01-26] MEDS: MULTIVITAMIN TAB PO SCH (08:33)
[2025-01-26] MEDS: CEROVITE ADV FORMULA TAB PO SCH (08:33)
[2025-01-26] MEDS: ASPIRIN 81 MG ECTAB PO SCH (08:34)
[2025-01-26] MEDS: ISOSORBIDE MONO EXTENDED REL 30 MG TABCR PO SCH (08:34)
[2025-01-26] MEDS ORDERED: MAGNESIUM GLYCINATE 100 MG PO SCH (09:00)
[2025-01-26] MEDS ORDERED: LYSINE 500 MG PO SCH (09:00)
[2025-01-26] MEDS: ACETAMINOPHEN 500 MG TAB PO PRN (12:23)
[2025-01-26] MEDS: ONDANSETRON 4 MG OD TAB PO PRN (12:42)
--- NOTE | 2025-01-26 13:38 | Hospitalist Progress Note ---
Date of Service January 26, 2025 Assessment & Plan (1) Myelopathy concurrent with and due to spinal stenosis of thoracic region: (2) HLD (hyperlipidemia): (3) CAD (coronary artery disease): (4) Hx of deep venous thrombosis: Plan This is a 79 y/o male with HTN, dyslipidemia, BPH, DVT w/ hx of being on Xarelto but subsequently discontinued, DDD, OA, and macular degeneration who underwent T10 to L2 decompression fusion today by Dr. Moss and for whom we have been consulted to assist with post-operative medical management. Currently, patient has no specific complaints. POD #1 - T10-L2 decompression fusion - Pain control, activity, PT/OT, bowel regimen per primary team - continue aspirin - continue to trend blood work - patient stable for discharge from medical perspective #Hypertension - Continue metoprolol as taken outpatient #Dyslipidemia - Continue statin #CAD - Chronic, stable - continue outpatient regimen including aspirin, statin, beta- adriana, and isosorbide I spent a total of 35 minutes in direct patient care, including [id number] time with the patient and/or family, reviewing medical records, ordering and reviewing diagnostic tests, and coordinating care with other healthcare providers. This time includes: history taking, physical examination, medical decision making, counseling, ECG interpretation, imaging interpretation, lab interpretation, orders, and education, excluding time spent in the performance of separately billed services. Admission and Anticipated Discharge Date Admission Date: January 25, 2025 Subjective Patient seen at bedside. Patient doing well today. Review of Systems Review of Systems: CONSTITUTIONAL: Patient denies fevers, chills, sweats and weight changes. EYES: Patient denies any visual symptoms. EARS, NOSE, AND THROAT: No difficulties with hearing. No symptoms of rhinitis or sore throat. CARDIOVASCULAR: Patient denies chest pains, palpitations, orthopnea and paroxysmal nocturnal dyspnea. RESPIRATORY: No dyspnea on exertion, no wheezing or cough. GI: No nausea, vomiting, diarrhea, constipation, abdominal pain, hematochezia or melena. : No urinary hesitancy or dribbling. No nocturia or urinary frequency. No abnormal urethral discharge. MUSCULOSKELETAL: No myalgias or arthralgias. NEUROLOGIC: No chronic headaches, no seizures. Patient denies numbness, tingling or weakness. PSYCHIATRIC: Patient denies problems with mood disturbance. No problems with anxiety. ENDOCRINE: No excessive urination or excessive thirst. DERMATOLOGIC: Patient denies any rashes or skin changes. Physical Exam Physical Exam: Gen: A&O 3 NAD HEENT: NCAT, EOMI, not icteric. External ears normal. No rhinorrhea. Moist mucous membranes. Neck: Supple, full range of motion, no observable masses, No meningeal sign. Lungs: No Respiratory distress. CV: RRR, no edema. Abdomen: Soft, nondistended, No rebound tenderness. MSK: No joint swelling, no redness. s/p back surgery, SALVADOR drain noted Skin: No rashes, petechiae, lesions. Normal color per patient. Neuro: Normal Gait, Grossly intact. Psych: Appropriate for situation. Results & Data Results & Data Vital Signs (Past 12 Hours) Vital Signs Temp Pulse Resp BP BP Pulse Ox O2 Del Method 01/26/25 11:14 37.1 C 67 16 126/68 94 Room Air 01/26/25 07:12 37.0 C 74 17 144/73 H 94 Room Air 01/26/25 04:12 37.0 C 73 18 159/77 H 96 Room Air Laboratory Results -personally reviewed, Hgb/WBC/creatinine stable and close to baseline Medications Administered Acetaminophen (Acetaminophen 500 Mg Tab) 1,000 mg PO Q8H PRN PRN Reason: MILD Pain (1,2,3) & Pre PT Stop: 02/24/25 16:26 Last Admin: 01/26/25 12:23 Dose: 1,000 mg Documented By: MYA Aspirin (Aspirin 81 Mg Ectab) 81 mg PO DAILY ROSALIA Stop: 02/25/25 08:59 Last Admin: 01/26/25 08:34 Dose: 81 mg Documented By: MYA Erythromycin (Erythromycin Op Oint 5 Mg/Gm 3.5 Gm Tube) 1 appln OP QAM ROSALIA Stop: 02/05/25 08:59 Last Admin: 01/26/25 08:33 Dose: 1 appln Documented By: MYA Cefazolin Sodium (Ancef 2000mg) 2,000 mg in 15 mls @ 3.75 mls/min IV Q8H ROSALIA Stop: 02/02/25 12:59 Last Admin: 01/26/25 12:24 Dose: 3.75 mls/min Documented By: MYA Isosorbide Mononitrate (Isosorbide [place] Extended Rel 30 Mg Tabcr) 30 mg PO QAM [facility] Stop: 02/25/25 08:59 Last Admin: 01/26/25 08:34 Dose: 30 mg Documented By: MYA Losartan Potassium (Losartan Potassium 50 Mg Tab) 50 mg PO BID ROSALIA Stop: 02/24/25 20:59 Last Admin: 01/26/25 08:34 Dose: 50 mg Documented By: Admin: 01/25/25 21:04 Dose: 50 mg Documented By: FLORENCIO Metoprolol Tartrate (Metoprolol Tartrate 25 Mg Tab) 25 mg PO TID ROSALIA Stop: 02/24/25 20:59 Last Admin: 01/26/25 08:33 Dose: 25 mg Documented By: Admin: 01/25/25 21:04 Dose: 25 mg Documented By: FLORENCIO Multivitamins (Multivitamin Tab) 1 tab PO QAM [facility] Stop: 02/25/25 08:59 Last Admin: 01/26/25 08:33 Dose: 1 tab Documented By: MYA Multivitamins/Minerals (Cerovite Adv Formula Tab) 1 tab PO DAILY ROSALIA Stop: 02/25/25 08:59 Last Admin: 01/26/25 08:33 Dose: 1 tab Documented By: MYA Ondansetron HCl (Ondansetron 4 Mg Od Tab) 4 mg PO Q6H PRN PRN Reason: Nausea Stop: 02/24/25 16:26 Last Admin: 01/26/25 12:42 Dose: 4 mg Documented By: MYA Oxycodone HCl (Oxycodone Hcl Ir 5 Mg Tab (Immediate Release)) 5 - 10 mg PO Q4H PRN PRN Reason: MOD/SEV Pain & Pre PT Stop: 02/08/25 16:26 Last Admin: 01/26/25 07:20 Dose: 10 mg Documented By: MYA Polyethylene Glycol (Polyethylene (Miralax) 17 Gm Pack) 17 gm PO Q6 ROSALIA Stop: 02/25/25 05:59 Last Admin: 01/26/25 12:23 Dose: 17 gm Documented By: Admin: 01/26/25 05:49 Dose: 17 gm Documented By: FLORENCIO Pravastatin Sodium (Pravastatin Sod 40 Mg Tab) 40 mg PO HS ROSALIA Stop: 02/24/25 20:59 Last Admin: 01/25/25 21:05 Dose: 40 mg Documented By: MNO Senna/Docusate Sodium (Docusate Sodium/Senna 50/8.6mg Tab) 2 tab PO HS ROSALIA Stop: 02/24/25 20:59 Last Admin: 01/25/25 21:03 Dose: 2 tab Documented By: FLORENCIO (2) HLD (hyperlipidemia) Hyperlipidemia type: unspecified Qualified Code(s): E78.5 - Hyperlipidemia, unspecified (3) CAD (coronary artery disease) Coronary Disease-Associated Artery/Lesion type: [place] artery [place] vs. transplanted heart: [place] heart Associated angina: unspecified whether angina present Qualified Code(s): I25.10 - Atherosclerotic heart disease of [place] coronary artery without angina pectoris
[2025-01-27 06:22] LABS: Hematocrit (blood only) 38.3 % (42.0-52.0); Hemoglobin 13.3 g/dl (14.0-18.0); Mean Corpuscular Hemoglobin 31.6 pg (25.0-34.0); Mean Corpuscular Volume 91.0 fL (80.0-100.0); Platelet Count 151 K/uL (130-400); RDW Standard Deviation 43.4 fL (36.4-46.3); Red Blood Count 4.21 M/uL (4.70-6.10); White Blood Count 7.35 K/ul (4.8-10.8)
[2025-01-27 06:37] LABS: Anion Gap 4.0 (3-11); Blood Urea Nitrogen 17.0 mg/dl (6-23); Calcium 9.3 mg/dl (8.6-10.3); Carbon Dioxide 30.0 mmol/L (21-32); Chloride 102.0 mmol/L (98-107); Creatinine Clr Calc Pharmacy 132.7 ml/min; Glucose 114.0 mg/dl (70-99(Fasting)); Potassium 4.1 mmol/L (3.5-5.1); Sodium 136.0 mmol/L (136-145)
--- NOTE | 2025-01-27 09:52 | Orthopedic Progress Note ---
Date of Service January 27, 2025 Assessment & Plan (1) Myelopathy concurrent with and due to spinal stenosis of thoracic region: Plan: Patient is improving nicely. Will plan for possible discharge tomorrow. Admission and Anticipated Discharge Date Admission Date: January 25, 2025 Subjective Patient's back pain is controlled. Leg symptoms improved. Tolerating physical therapy. Physical Exam Physical Exam: Patient is seen at bedside appears comfortable. Distracted testing. Results & Data Vital Signs (Past 12 Hours) Vital Signs Temp Pulse Resp BP Pulse Ox O2 Del Method 01/27/25 09:20 76 123/70 01/27/25 06:35 37.3 C 72 18 147/73 H 93 Room Air 01/26/25 23:24 37.5 C 73 18 146/73 H 94 Room Air Queries Orthopedic Spine Obesity: Yes
--- NOTE | 2025-01-27 13:21 | Hospitalist Progress Note ---
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 Anticipate resuming home medications at discharge Medically ready for discharge when surgically ready and determined by attending. Admission and Anticipated Discharge Date Admission Date: January 25, 2025 Subjective Patient reports he is doing well. Pain is controlled. Ambulating without chest pain or shortness of breath. Physical Exam Physical Exam: Constitutional: Alert HEENT: Mucous membranes moist. Lungs: Clear to auscultation, decreased, no wheezes rales or rhonchi CV: S1-S2, regular Abdomen: Soft, nontender, nondistended Extremities: No significant edema Neuro: No focal deficits Psych: Cooperative, normal mood Results & Data Results & Data Vital Signs (Past 12 Hours) Vital Signs Temp Pulse Resp BP Pulse Ox O2 Del Method 01/27/25 09:20 76 123/70 01/27/25 06:35 37.3 C 72 18 147/73 H 93 Room Air Diagnostic Findings Reviewed imaging, laboratory and diagnostic studies. Pertinent findings as below. Hemoglobin 13.3, stable Electrolytes stable Creatinine 0.68 (2) HLD (hyperlipidemia) Hyperlipidemia type: unspecified Qualified Code(s): E78.5 - Hyperlipidemia, unspecified (3) CAD (coronary artery disease) Coronary Disease-Associated Artery/Lesion type: [place] artery [place] vs. transplanted heart: [place] heart Associated angina: unspecified whether angina present Qualified Code(s): I25.10 - Atherosclerotic heart disease of [place] coronary artery without angina pectoris
[2025-01-27 14:58] VITALS: RESP 16
[2025-01-28 07:22] VITALS: BP 133/82; PULSE 77; TEMP 97.5; O2SAT 95
--- NOTE | 2025-01-28 08:45 | Discharge Summary ---
Date of Service January 28, 2025 Admission HPI Per Admitting Provider This is a 79-year-old male well-known to me the presents with marked decline in status. He has severe thoracic spinal stenosis with myelopathy. Admission Exam (Per Admitting) Constitutional WD/WN, vitals as above Eyes normal visual arias by confrontation ENMT external ear and nose normal, oropharynx normal Neck normal visual inspection Respiratory normal respiratory effort Cardiovascular Extremities: normal capillary refill Gastrointestinal (Abdomen) Inspection/Auscultation: abdomen normal to inspection Musculoskeletal Spine: + limited thoraco-lumbar ROM Extremities: extremities normal to inspection and strength 5/5 throughout Skin no rashes, warm and dry Neurologic normal touch/pain/proprioception and moves all extremities Psychiatric A+Ox3, euthymic affect Eye Contact: good eye contact Discharge Data Consultations 01/25/25 16:27 Consult Hospitalist Routine Procedures Performed Operation Date: 01/25/25 12:55 Actual Procedures p T10 to L2 Fusion, T11 to T12 Decompression, (Not Applicable) - German Moss DO s T12-L2 Hardware Removal(Not Applicable) - German Moss DO Hospital Course (1) Myelopathy concurrent with and due to spinal stenosis of thoracic region: Karan is being discharged home with home health on postoperative day 3 status post T8 10 to L2 decompression and fusion. He has had an uneventful hospital course. Lab values have been stable. Pain is controlled. He is passing flatus. SALVADOR drain output last shift was 30 cc. Yesterday in physical therapy Ambulating 325 feet plus the hallways with a walker. Discharge Instructions ACTIVITY RECOMMENDATIONS: SELF CARE INSTRUCTIONS AFTER THORACIC/LUMBAR FUSIONS 1. You may walk to your tolerance. It is good exercise for your legs and back. Expect some back and intermittent leg aches and pains. 2. You may perform "counter-top" level activities (make a sandwich, anuj with a project, etc.). 3. No bending or lifting of more than 10 pounds or back twisting of any nature (roll like a log when turning in bed). 4. You may ride in a car for 20-30 minutes at a time. No driving until after your first visit with your doctor. 5. Frequent changes of position and restricting sitting to 30 minutes at a time will help limit the amount of back spasms and stiffness you may experience. 6. You may discontinue the use of ambulatory aids (cane, crutches, etc.) once your strength and confidence allow. 7. You may practicing urologist the shower and let water strike your incision when you arrive home at least once daily. Do not take a tub bath, sit in a hot tub or go into a swimming pool until after your first recheck in the office. 8. You may resume previous diet. SPECIAL CARE INSTRUCTIONS: VERY IMPORTANT TO READ AND REVIEW A. Your surgical incision has been closed with a cosmetic suture under the skin that will dissolve in about 6 weeks. In 14 days, you can use a pair of clean scissors and cut the suture that is left outside of the skin at the ends of your incision. 1. The small skin tapes can be removed 7 days after surgery if they have not fallen off by that point. 2. You may keep the wound open to air as much as possible to promote healing after post-op day number 5 unless told otherwise by your doctor. 3. If you think the wound looks like it is becoming infected (redness or worsening drainage) and/or you are experiencing fever, chill or worsening back pain and muscle spasms, contact the office so that we may evaluate you as soon as possible. B. Complications are uncommon, but please contact us if you have any signs or symptoms of: 1. wound infection (fever higher than 102.5 degrees F, redness, separation of wound, drainage, or increasing pain from the incision) 2. blood clots in legs (pain, swelling, redness and warmth in legs) 3. urinary tract infection (fever higher than 102.5 degrees F, burning upon urination or increased frequency of urination) 4. nerve problems (inability to walk on your toes or heels, numbness, loss of bowel or bladder control) 5. any other symptoms that concern you C. Please call the office at if you have any concerns or questions about your operation or recovery. D. No smoking! Smoking drastically decreases the chance of a solid fusion. E. Do not take any anti-inflammatory medications (Indocin, Advil, Motrin, Aspirin, Naprosyn, etc.) as these may inhibit the chance of a solid fusion. Tylenol is okay to take for pain. MANAGING PAIN AFTER SPINAL SURGERY 1. Narcotic medication is intended for short-term use and will be provided for surgical pain. Surgical pain usually lasts for a period of 4-6 weeks. Narcotic medication includes Percocet, Vicodin, Darvocet, Tylenol #3 or Lortab. 2. Longer-term pain is more appropriately treated with non-narcotic medication such as Tylenol ES. 3. Muscle spasm is not appropriately treated with narcotics. Muscle relaxers such as Soma, Flexeril or Skelaxin can be used along with Tylenol ES. 4. Remember that we all live with some "aches and pains". This is not unusual or uncommon after an injury or as we get older. a. Back pain is expected and may include muscle spasms for 4 to 6 weeks after surgery. The pain should gradually improve. If the pain worsens for no apparent reason, please contact the office. b. Intermittent leg pain may also be experienced and should not be concerned about unless it worsens for no apparent reason. If so, please contact the office. 5. We will provide appropriate medication within the normal guidelines of their prescribed use. We will also be very cautious and aware of potential abuse and extended duration of patients' medication needs. a. Pain medications are for your comfort and to assist with sleep and rest so that the tissue can heal. They are not provided in order to return to normal activity and should not be used through the day. To do so or worsening pain at night can result from ongoing tissue damage and development of tolerance to the prescribed medicine. 6. Please allow 2-3 days to process refills. Prescriptions will not be mailed but must be picked up at the office. FOLLOW UP VISIT: Keep your scheduled follow-up appointment. Any questions, please call the office at .
--- NOTE | 2025-01-28 10:14 | Hospitalist Progress Note ---
Date of Service January 28, 2025 Assessment & Plan (1) Myelopathy concurrent with and due to spinal stenosis of thoracic region: (2) HLD (hyperlipidemia): (3) CAD (coronary artery disease): (4) Hx of deep venous thrombosis: Plan Patient medically ready for discharge. Anticipate discharge later today after seen by surgical attending. Admission and Anticipated Discharge Date Admission Date: January 25, 2025 Subjective No acute issues overnight. Feeling well. Anticipating going home. Physical Exam Physical Exam: Constitutional: Alert, nontoxic, sitting in chair HEENT: Mucous membranes moist. Lungs: Clear to auscultation, decreased, no wheezes rales or rhonchi CV: S1-S2, regular Abdomen: Soft, nontender, nondistended Extremities: No significant edema Neuro: No focal deficits Psych: Cooperative, normal mood Results & Data Results & Data Vital Signs (Past 12 Hours) Vital Signs Temp Pulse Resp BP BP Pulse Ox O2 Del Method 01/28/25 07:19 36.4 C L 77 16 133/82 95 Room Air 01/27/25 23:06 36.5 C 62 16 130/99 94 Room Air (2) HLD (hyperlipidemia) Hyperlipidemia type: unspecified Qualified Code(s): E78.5 - Hyperlipidemia, unspecified (3) CAD (coronary artery disease) Coronary Disease-Associated Artery/Lesion type: false pass artery [place] vs. transplanted heart: false pass heart Associated angina: unspecified whether angina present Qualified Code(s): I25.10 - Atherosclerotic heart disease of false pass coronary artery without angina pectoris
== END 2025-01-28 13:54 | disposition home health service (06) | DRG 448 ==
LOC: ASU 11:37 → 3E 15:02